=== PATIENT | female | born 1970 | race Caucasian/White ===

== ENCOUNTER 2017-04-09 03:39 | Inpatient (IN) | payer MEDICAID ==
[~2017-04-09] VITALS: Ht 160 cm; Wt 124.3 kg
[2017-04-09 03:52] VITALS: BP 147/100
--- NOTE | 2017-04-09 04:05 | NUR ---
AMBULATD TO ER BED 8
--- NOTE | 2017-04-09 04:10 | NUR ---
46Y F BIB FAMILY C/O RLQ PAIN RADIATING TO THE RIGHT FLANK. PT DENIES ANY VOMITING OR DIARRHEA JUST NAUSEA. PT DENIES ANY ALLERGIES AND MEDICAL HX. PT AAOX4. PT AMBULATED TO ER BED WITH STEADY GAIT. ER MD MADE AWARE.
[2017-04-09] MEDS ORDERED: MORPHINE SULFATE 4 MG/ML SYR IVP ONE ×2 (04:20→06:30)
[2017-04-09] MEDS ORDERED: NACL 0.9% 1,000 ML IV ONE (04:20)
[2017-04-09 04:35] LABS: HEMATOCRIT 41.4 % (36-48); HEMOGLOBIN 13.6 g/dL (12.0-16.0); MEAN CORPUSCULAR HEMOGLOBIN 29 pg (27-31); MEAN CORPUSCULAR HGB CONC 33 g/dL (33-37); MEAN CORPUSCULAR VOLUME 88 fL (80-94); PLATELET COUNT (AUTO) 191 K/uL (140-450); RED BLOOD CELL COUNT(AUTO) 4.69 MIL/uL (4.20-5.40); RED CELL DISTRIBUTION WIDTH 12.1 % (11.6-13.7); WHITE BLOOD COUNT (AUTO) 9.3 K/uL (4.8-10.8)
[2017-04-09 04:35] LABS: APPEARANCE,URINE CLEAR (CLEAR); BILIRUBIN,URINE NEGATIVE (NEGATIVE); BLOOD, URINE TRACE-L (NEGATIVE); COLOR,URINE YELLOW (YELLOW); LEUKOCYTE ESTERASE ,URINE NEGATIVE (NEGATIVE); NITRITE, URINE NEGATIVE (NEGATIVE); UGLUCOSE NEGATIVE (NEGATIVE)
[2017-04-09 04:51] LABS: ALBUMIN 3.6 g/dL (3.4-5.0); ANION GAP 12.9 (8-16); CREATININE 0.8 mg/dL (0.6-1.3); POTASSIUM 3.9 mmol/L (3.5-5.1); TOTAL BILIRUBIN 0.4 mg/dL (0.0-1.0)
--- NOTE | 2017-04-09 04:56 | NUR ---
ULTRASOUND AT BEDSIDE
[2017-04-09 04:57] LABS: EOSINOPHILS % (MANUAL) 6 % (0-4); LYMPHOCYTES % (MANUAL) 29 % (20-46); MONOCYTES % (MANUAL) 4 % (5-12)
[2017-04-09 04:57] LABS: RBC,URINE 0-5 (RARE) /HPF (0-5); WBC,URINE 0-5 (RARE) /HPF (0-5)
--- NOTE | 2017-04-09 07:06 | NUR ---
RECEIVED REPORT FROM QUEENIE CRAWFORD.Patient appears to be resting comfortably in bed. Vital Signs within normal limits. Respirations even and unlabored.WILL CONTINUE TO MONITOR.
--- NOTE | 2017-04-09 07:06 | NUR ---
Note andrzej in EDM - 04/09/17 at 0717 by MEDDEBBYV RECEIVED REPORT FROM QUEENIE CRAWFORD.Patient appears to be resting comfortably in bed. Vital Signs within normal limits. Respirations even and unlabored.WILL CONTINUE TO MONITOR.
[2017-04-09] MEDS ORDERED: DOCUSATE SODIUM 100 MG GELCAP PO PRN (07:25)
[2017-04-09] MEDS ORDERED: METOCLOPRAMIDE 10 MG/2 ML INJ VIAL IVP ONE (07:25)
[2017-04-09] MEDS ORDERED: ACETAMINOPHEN 325 MG TAB PO PRN (07:25)
[2017-04-09] MEDS ORDERED: MORPHINE SULFATE 2 MG/ML SYR IVP PRN (07:25)
--- NOTE | 2017-04-09 07:36 | NUR ---
X RAY AT BEDSIDE.
[2017-04-09 07:48] LABS: PROTHROMBIN TIME 9.8 secs (10.8-13.4)
--- NOTE | 2017-04-09 07:48 | NUR ---
Patient being evaluated by DR CHAN at bedside.
[2017-04-09] MEDS ORDERED: HYDROmorphone 1 MG/ML AMP IVP ONE (07:50)
[2017-04-09] MEDS ORDERED: HYDROmorphone 1 MG/ML AMP ONE (07:55)
[2017-04-09 08:06] LABS: CHOL/HDL RATIO 6.4 (1-4.5); FREE T4 (FREE THYROXINE) 1.01 ng/dL (0.76-1.46); PHOSPHORUS 2.7 mg/dL (2.5-4.9); THYROID STIMULATING HORMONE 2.52 uIU/mL (0.34-3.74)
--- NOTE | 2017-04-09 08:28 | NUR ---
GAVE REPORT TO QUEENIE ACEVEDO.
--- NOTE | 2017-04-09 08:29 | NUR ---
Patient will be admitted to care of DR BARRON. Admited toTADAIR. Will go to room 111A. Belongings list completed. Report to QUEENIE ACEVEDO.
[2017-04-09 08:30] LABS: BARBITURATE, URINE NEG. ng/ml (NEG <=200); BENZODIAZEPINE, URINE NEG. ng/mL (NEG <=200); CANNABINOID, URINE NEG. ng/mL (NEG <=50); COCAINE, URINE NEG. ng/mL (NEG <=300); OPIATE, URINE NEG. ng/mL (NEG <=2000); PHENCYCLIDINE SCREEN,URINE NEG. ng/mL (NEG <=25)
[2017-04-09 08:40] VITALS: BP 115/50
--- NOTE | 2017-04-09 08:40 | NUR ---
RECEIVED PATIENT REPORT AT BEDSIDE FROM NIGHT NURSE. PATIENT IS AAOX4 AND SHOWS NO S/S OF ACUTE DISTRESS ON ROOM AIR. PATIENT STATES RUQ ABD PAIN 12/30 WILL ADMINISTER NORCO 7.5/325MG PO. IV NOTED ON THE R AC WITH IVF'S INFUSING WELL. SA ON TELE MONITOR. SKIN IS INTACT. PATIENT IS AWARE OF POC FOR TODAY AND VERBALIZED UNDERSTANDING. THE BED IS LOWERED WITH CALL LIGHT WITHIN REACH. WILL CONTINUE TO MONITOR. Addendum: 04/09/17 at 1139 by Haydee Case RN RECEIVED PATIENT FROM ER NURSE. NOT NIGHT NURSE.
--- NOTE | 2017-04-09 09:55 | NUR ---
ADMINISTERED PRN PAIN MEDICATION NORCO 7.5/325MG PO FOR RUQ ABD PAIN 6/10. WILL REASSESS IN ONE HR.
[2017-04-09] MEDS: HYDROcodone/APAP 7.5/325 MG 1 TAB PO PRN (09:56)
[2017-04-09] MEDS: NACL 0.9% 1,000 ML IV SCH ×3 (09:57→20:42)
--- NOTE | 2017-04-09 10:55 | NUR ---
PATIENT STATES RUQ PAIN IS 8/10. WILL ADMINISTER PRN SEVER PAIN MEDICATION.
[2017-04-09] MEDS: KETOROLAC 30 MG/ML VIAL IM PRN ×3 (11:30→22:38)
--- NOTE | 2017-04-09 11:30 | NUR ---
PATIENT C/O 8/10 RUQ ABD PAIN. WILL ADMINISTER PRN PAIN MEDICATION TORADOL 30 MG IVP. WILL REASSESS IN 30 MIN.
[2017-04-09 12:00] VITALS: BP 130/68
--- NOTE | 2017-04-09 12:00 | NUR ---
PATIENT STATED TOLERABLE PAIN LEVEL OF 5/10 RUQ ABD. WILL CONTINUE TO MONITOR.
[2017-04-09] MEDS: PIPER/TAZO 3.375GM/D5W PREMIX 50 ML IV SCH ×2 (12:32→20:31)
--- NOTE | 2017-04-09 12:35 | NUR ---
ADMINISTERED SCHEDULED MEDICATION. IV ABX ARE INFUSING WELL.
--- NOTE | 2017-04-09 13:09 | NUR ---
PATIENT IS AAOX4 AND SHOWS NO S/S OF ACUTE DISTRESS ON RA. WILL CONTINUE TO MONITOR.
--- NOTE | 2017-04-09 15:22 | NUR ---
PATIENT STATES PAIN LEVEL OF 4/10 AT RUQ ABD. PATIENT STATES PAIN IS TOLERABLE. ALL NEEDS MET AT THIS TIME. PATIENT IS IN BED RESTING AND SHOWS NO S/S OF ACUTE DISTRESS ON ROOM AIR. BED IS IN LOW POSITION WITH CALL LIGHT WITHIN REACH.
[2017-04-09 15:42] VITALS: BP 114/67
--- NOTE | 2017-04-09 17:56 | NUR ---
PATIENT C/O RUQ ABD PAIN 8/10 ADMINISTERED TORADOL 30 MG IVP. WILL REASSESS IN 30 MIN.
--- NOTE | 2017-04-09 19:25 | NUR ---
GAVE PATIENT REPORT AT BEDSIDE TO NIGHT NURSE. PATIENT ENDORSED IN STABLE CONDITION.
--- NOTE | 2017-04-09 19:26 | NUR ---
PT IS AWAKE AND ALERT. BOWEL SOUNDS PRESENT ON ALL FOUR QUADRANTS. NO SIGNS OF ACUTE DISTRESS, ON ROOM AIR. IV ACCESS PATENT AND ASYMPTOMATIC. PLAN OF CARE DISCUSSED, PT VERBALIZED UNDERSTANDING. FAMILY AT THE BEDSIDE. BED ON LOW POSITION, BILATERAL HALF SIDE RAILS UP, CALL LIGHT WITHIN REACH, WILL CONTINUE TO MONITOR.
[2017-04-09 20:00] VITALS: BP 109/63
[2017-04-09] MEDS: ONDANSETRON 4 MG/2 ML VIAL IM/IVP PRN (20:31)
--- NOTE | 2017-04-09 21:30 | NUR ---
PT SITTING UP IN BED, FAMILY MEMBER AT THE BEDSIDE. NO SIGNS OF ACUTE DISTRESS, BILATERAL HALF SIDE RAILS UP, BED ON LOW POSITION, CALL LIGHT WITHIN REACH. WILL CONTINUE TO MONITOR.
--- NOTE | 2017-04-10 00:10 | NUR ---
PT IS SLEEPING. NO SIGNS OF ACUTE DISTRESS, BILATERAL HALF SIDE RAILS UP, BED ON LOW POSITION, CALL LIGHT WITHIN REACH. WILL CONTINUE TO MONITOR.
--- NOTE | 2017-04-10 02:40 | NUR ---
ASSISTED PT TO THE BATHROOM, TOLERATED WELL. BACK IN BED. BILATERAL HALF SIDE RAILS UP, BED ON LOW POSITION, CALL LIGHT WITHIN REACH. WILL CONTINUE TO MONITOR.
[2017-04-10] MEDS: ONDANSETRON 4 MG/2 ML VIAL IM/IVP PRN (02:50)
[2017-04-10] MEDS: KETOROLAC 30 MG/ML VIAL IM PRN (02:50)
[2017-04-10] MEDS: NACL 0.9% 1,000 ML IV SCH ×4 (03:22→23:36)
[2017-04-10] MEDS: PIPER/TAZO 3.375GM/D5W PREMIX 50 ML IV SCH ×3 (06:01→21:32)
--- NOTE | 2017-04-10 06:08 | NUR ---
ASSISTED PT TO THE BATHROOM, TOLERATED WELL. PT BACK IN BED. NO SIGNS OF ACUTE DISTRESS, BED ON LOW POSITION, BILATERAL HALF SIDE RAILS UP, CALL LIGHT WITHIN REACH, WILL CONTINUE TO MONITOR.
[2017-04-10 06:42] LABS: BASOPHILS # (AUTO) 0.2 K/uL (0.00-0.22); EOSINOPHILS # (AUTO) 0.1 K/uL (0-0.4); EOSINOPHILS % (AUTO) 0.7 % (0.0-4.0); HEMOGLOBIN 13.3 g/dL (12.0-16.0); LYMPHOCYTES % (AUTO) 8.4 % (20.5-51.1); MEAN CORPUSCULAR HEMOGLOBIN 30 pg (27-31); MEAN CORPUSCULAR HGB CONC 34 g/dL (33-37); MEAN CORPUSCULAR VOLUME 88 fL (80-94); MONOCYTES # (AUTO) 1.5 K/uL (0.8-1.0); MONOCYTES % (AUTO) 12.4 % (1.7-9.3); NEUTROPHILS % (AUTO) 76.5 % (42.2-75.2); PLATELET COUNT (AUTO) 180 K/uL (140-450); RED BLOOD CELL COUNT(AUTO) 4.45 MIL/uL (4.20-5.40); RED CELL DISTRIBUTION WIDTH 12.4 % (11.6-13.7); WHITE BLOOD COUNT (AUTO) 11.8 K/uL (4.8-10.8)
[2017-04-10 06:55] LABS: ANION GAP 13.8 (8-16); CARBON DIOXIDE 23.5 mmol/L (21-32); CREATININE 0.6 mg/dL (0.6-1.3); POTASSIUM 3.3 mmol/L (3.5-5.1)
--- NOTE | 2017-04-10 07:22 | NUR ---
ENDORSED PT TO NIGHT NURSE. PT IN STABLE CONDITION.
--- NOTE | 2017-04-10 07:25 | NUR ---
RECEIVED REPORT FROM NIGHT NURSE, PT IS AAOX4 FRENCH SPEAKING, ON ROOM AIR, IV TO RIGHT AC 20G INFUSING WELL, SKIN INTACT, INITIAL ASSESSMENT COMPLETED, REVIEW PLAN OF CARE WITH PT, PT VERBALIZED UNDERSTANDING, ALL SAFETY PRECAUTIONS MET, CALL LIGHT WITHIN REACH, WILL CONTINUE TO MONITOR.
[2017-04-10 08:00] VITALS: BP 107/53
--- NOTE | 2017-04-10 08:15 | NUR ---
PATIENT HAS BEEN SCREENED AND CATEGORIZED HIGH NUTRITION RISK. PATIENT WILL BE SEEN WITHIN 1-2 DAYS OF ADMISSION. 04/09/17-04/10/[address]
[2017-04-10 08:23] LABS: T4 (THYROXINE) 6.4 ug/dL (4.5-12.0)
[2017-04-10] MEDS: LACTOBACILLUS RHAMNOSUS GG 1 EACH CAP PO SCH (09:09)
[2017-04-10] MEDS: KETOROLAC 30 MG/ML VIAL IVP PRN ×3 (09:09→23:02)
--- NOTE | 2017-04-10 09:12 | NUR ---
DUE MEDICATIONS GIVEN, PT TOLERATED WELL. PT C/O ABD PAIN MEDICATED PER MD ORDERS. WILL CONTINUE TO MONITOR.
[2017-04-10] MEDS ORDERED: POTASSIUM CHLORIDE 40 MEQ, LIDOCAINE 1% 25 MG in NACL 0.9% 250 ML IV SCH (11:00)
--- NOTE | 2017-04-10 11:37 | NUR ---
PT CURRENTLY RESTING IN BED, NO S/S OF DISTRESS NOTED. ALL NEEDS MET. WILL CONTINUE TO MONITOR.
[2017-04-10 12:00] VITALS: BP 126/64
--- NOTE | 2017-04-10 12:46 | NUR ---
04/10/17 RD INITIAL ASSESSMENT COMPLETED PLEASE REFER TO NUTRITION ASSESSMENT UNDER CARE ACTIVITY FOR ESTIMATED NUTRITIONAL NEEDS. 1.CONTINUE NPO DIET 2. WHEN MEDICALLY FEASIBLE, INITIATE CLEAR LIQUID DIET AND ADVANCE TO REGULAR DIET 3. RD TO FOLLOW UP WITHIN 2-3 DAYS; HIGH RISK NESS MCDANIEL, WINTER
[2017-04-10] MEDS: HYDROcodone/APAP 7.5/325 MG 1 TAB PO PRN ×2 (13:40→18:48)
--- NOTE | 2017-04-10 14:25 | NUR ---
PT RESTING IN BED, ALL SAFETY PRECAUTIONS MET. CALL LIGHT WITHIN REACH. WILL CONTINUE TO MONITOR
[2017-04-10 16:00] VITALS: BP 123/67
--- NOTE | 2017-04-10 16:10 | NUR ---
CHECKED IN ON PT, PT AWAKE. ALL NEEDS MET. CALL LIGHT WITHIN REACH.
--- NOTE | 2017-04-10 18:45 | NUR ---
PT C/O OF ABD PAIN, MEDICATED PER MD ORDERS. CALL LIGHT WITHIN REACH. WILL CONTINUE TO MONITOR,
--- NOTE | 2017-04-10 19:12 | NUR ---
ENDORSED PLAN OF CARE TO NIGHT NURSE, PT IN STABLE CONDITION, PT VISITING WITH FAMILY
--- NOTE | 2017-04-10 19:30 | NUR ---
RECEIVED REPORT FROM AM NURSE. PT RESTING IN BED, AOX4, AMBULATORY, ABLE TO VERBALIZE NEEDS. PT C/O ABD PAIN, PT WAS JUST MEDICATED, PAIN TOLERABLE, WILL MONITOR PAIN. PT DENIES CHEST PAIN, SOB OR S/S OF ACUTE DISTRESS. PT DENIES N/V/D. JUNIOR PHP DEVELOPER IN PLACE. IV ACCESS ASYMPTOMATIC, PATENT AND INTACT. IVF INFUSING WELL. DISCUSSED AND REVIEWED PLAN OF CARE WITH PT. PT VERBALIZED UNDERSTANDING. ALL NEEDS MET. SAFETY MEASURES ENSURED. CALL LIGHT WITHIN REACH. WILL CONTINUE TO MONITOR.
[2017-04-10 20:00] VITALS: BP 121/72
--- NOTE | 2017-04-10 21:35 | NUR ---
ADMINISTERED DUE MED WITH EDUCATION. PT VERBALIZED UNDERSTANDING, IVPB INFUSING WELL. ALL NEEDS MET. SAFETY MEASURES ENSURED. CALL LIGHT WITHIN REACH. WILL CONTINUE TO MONITOR.
--- NOTE | 2017-04-10 23:42 | NUR ---
WAS NOTIFIED BY FISH AND WILDLIFE TECHNICIAN THAT PT IS HAVING FREQ PVC's. CHECKED ON PT. PT IS SLEEPING, AROUSABLE. PT DENIES CHEST PAIN, SOB OR S/S OF ACUTE DISTRESS. VS STABLE. BP 127/70, HR 91, SPO2 94% AT ROOM AIR, RR 18 UNLABORED. PT DENIES ABD PAIN AT THIS TIME. WILL CONTINUE TO MONITOR.
[2017-04-11] VITALS: BP 127/70
[2017-04-11] MEDS: ONDANSETRON 4 MG/2 ML VIAL IM/IVP PRN ×2 (00:19→17:50)
--- NOTE | 2017-04-11 00:20 | NUR ---
PT C/O NAUSEA, ADMINISTERED ZOFRAN PRN ORDERED. PT DENIES ABD PAIN AT THIS TIME. IVF INFUSING WELL, ALL NEEDS MET. SAFETY MEASURES ENSURED. CALL LIGHT WITHIN REACH. WILL CONTINUE TO MONITOR.
--- NOTE | 2017-04-11 02:01 | NUR ---
PT SLEEPING COMFORTABLY. NO S/S OF ACUTE DISTRESS. IVF INFUSING WELL. ALL NEEDS MET. SAFETY MEASURES ENSURED. CALL LIGHT WITHIN REACH. WILL CONTINUE TO MONITOR.
[2017-04-11 04:00] VITALS: BP 132/70
[2017-04-11] MEDS: HYDROcodone/APAP 7.5/325 MG 1 TAB PO PRN ×3 (04:12→23:23)
[2017-04-11] MEDS: PIPER/TAZO 3.375GM/D5W PREMIX 50 ML IV SCH ×3 (04:13→20:51)
--- NOTE | 2017-04-11 04:16 | NUR ---
PT C/O ABD PAIN. SEE PAIN ASSESSMENT. ADMINISTERED NORCO PO PRN ORDERED WITH EDUCATION. PT VERBALIZED UNDERSTANDING, TOLERATED MED WELL. IVPB INFUSING WELL. SCDs ENSURED. ALL NEEDS MET. SAFETY MEASURES ENSURED. CALL LIGHT WITHIN REACH. WILL CONTINUE TO MONITOR.
[2017-04-11] MEDS: NACL 0.9% 1,000 ML IV SCH ×4 (06:02→19:22)
[2017-04-11 06:51] LABS: BASOPHILS # (AUTO) 0.1 K/uL (0.00-0.22); BASOPHILS % (AUTO) 1.3 % (0.0-2.0); EOSINOPHILS # (AUTO) 0.4 K/uL (0-0.4); EOSINOPHILS % (AUTO) 4.4 % (0.0-4.0); HEMATOCRIT 36.4 % (36-48); HEMOGLOBIN 12.3 g/dL (12.0-16.0); LYMPHOCYTES # (AUTO) 1.6 K/uL (2.5-16.5); MEAN CORPUSCULAR HEMOGLOBIN 30 pg (27-31); MEAN CORPUSCULAR HGB CONC 34 g/dL (33-37); MEAN CORPUSCULAR VOLUME 88 fL (80-94); MONOCYTES # (AUTO) 1.1 K/uL (0.8-1.0); MONOCYTES % (AUTO) 12.4 % (1.7-9.3); NEUTROPHILS % (AUTO) 64.9 % (42.2-75.2); PLATELET COUNT (AUTO) 155 K/uL (140-450); RED BLOOD CELL COUNT(AUTO) 4.13 MIL/uL (4.20-5.40); RED CELL DISTRIBUTION WIDTH 12.1 % (11.6-13.7); WHITE BLOOD COUNT (AUTO) 9.2 K/uL (4.8-10.8)
--- NOTE | 2017-04-11 07:20 | NUR ---
ENDORSED PLAN OF CARE TO AM NURSE. CONDITION STABLE.
[2017-04-11 07:21] LABS: ANION GAP 12.2 (8-16); CARBON DIOXIDE 24.3 mmol/L (21-32); CREATININE 0.6 mg/dL (0.6-1.3); POTASSIUM 3.5 mmol/L (3.5-5.1)
--- NOTE | 2017-04-11 07:22 | NUR ---
RECEIVED PATIENT REPORT AT BEDSIDE FROM NIGHT NURSE. PATIENT IS AAOX4 AND SHOWS NO S/S OF ACUTE DISTRESS ON ROOM AIR. PATIENT STATES RUQ ABD PAIN 5/10 RUQ ABD PAIN AND STATES IT IS TOLERABLE. IV NOTED ON THE R AC WITH IVF'S INFUSING WELL. SA ON TELE MONITOR. SKIN IS INTACT. PATIENT IS AWARE OF POC FOR TODAY AND VERBALIZED UNDERSTANDING. THE BED IS LOWERED WITH CALL LIGHT WITHIN REACH. WILL CONTINUE TO MONITOR.
[2017-04-11 08:00] VITALS: BP 114/65
[2017-04-11] MEDS: LACTOBACILLUS RHAMNOSUS GG 1 EACH CAP PO SCH (08:49)
--- NOTE | 2017-04-11 08:50 | NUR ---
ADMINISTERED SCHEDULED MEDICATIONS. PATIENT TOLERATED ACTIVITY WELL. PATIENT STARTED TO C/O RUQ ABD PAIN 01/29 WILL ADMINISTER PRN PAIN MEDICATION.
--- NOTE | 2017-04-11 09:40 | NUR ---
ADMINISTERED TORADOL 30 MG IVP. WILL REASSESS IN 30 MIN.
--- NOTE | 2017-04-11 10:10 | NUR ---
PATIENT C/O 6/10 ABD PAIN. PATIENT HAS NM SCAN AT 1400 AND PER NM NURSE PATIENT CANNOT RECEIVE ANYMORE PAIN MEDICATION AFTER TORADOL 30 MG IVP. PATIENT IS AWARE. PATIENT IS NPO. THE BED IS LOWERED WITH CALL LIGHT WITHIN REACH.
--- NOTE | 2017-04-11 11:25 | NUR ---
PATIENT SHOWS NO S/S OF ACUTE DISTRESS ON ROOM AIR.
[2017-04-11 12:00] VITALS: BP 119/66
[2017-04-11 12:46] LABS: BILIRUBIN,DIRECT 0.4 mg/dL (0.0-0.3)
--- NOTE | 2017-04-11 12:55 | NUR ---
PATIENT SHOWS NO S/S OF ACUTE DISTRESS ON ROOM AIR. THE BED IS LOWERED WITH CALL LIGHT WITHIN REACH.
--- NOTE | 2017-04-11 13:20 | NUR ---
ADMINISTERED SCHEDULED MEDICATION. PATIENT IV ABX IS INFUSING WELL.
--- NOTE | 2017-04-11 13:45 | NUR ---
PATIENT LEFT OFF UNIT IN STABLE CONDITION FOR A PROCEDURE.
[2017-04-11] MEDS ORDERED: MORPHINE SULFATE 2 MG/ML SYR IVP PRN (14:05)
--- NOTE | 2017-04-11 14:05 | NUR ---
SPOKE WITH DR LEVINE REGARDING MORPHINE ORDER FOR PATIENT TO HAVE DURING EXAM PER JASMINE MADISON DICKERSON.
--- NOTE | 2017-04-11 15:05 | NUR ---
PATIENT C/O 10/10 RUQ ABD PAIN. MORPHINE 2 MG IVP WAS SCHEDULED TO GIVE FOR HIDA SCAN PROCEDURE. ADMINISTERED MORPHINE. WILL REASSESS IN 30 MIN.
--- NOTE | 2017-04-11 15:35 | NUR ---
PATIENT STATES SHARP RUQ ABD PAIN 6/10. PATIENT WAS MEDICATED. WILL REASSESS BP IN A HR AND ADMINISTER PRN PAIN MEDICAITON TORADOL 30 MG IVP.
[2017-04-11 16:00] VITALS: BP 136/70
--- NOTE | 2017-04-11 16:35 | NUR ---
PATIENT CONTINUES TO HAVE RUQ ABD PAIN 6/10 WILL ADMINISTER TORADOL 30 MG IVP. WILL REASSESS IN 30 MIN.
[2017-04-11] MEDS: KETOROLAC 30 MG/ML VIAL IVP PRN (16:37)
--- NOTE | 2017-04-11 18:50 | NUR ---
PATIENT IS SLEEPING AND SHOWS NO S/S OF ACUTE DISTRESS. PT IS AWAKEN AND STATED PAIN LEVEL OF 5/10 TOLERABLE PAIN.
--- NOTE | 2017-04-11 19:17 | NUR ---
GAVE PATIENT REPORT AT BEDSIDE TO NIGHT NURSE. PATIENT ENDORSED IN STABLE CONDITION.
--- NOTE | 2017-04-11 19:30 | NUR ---
RECEIVED REPORT FROM AM NURSE. PT RESTING IN BED, AOX4, AMBULATORY, ABLE TO VERBALIZE NEEDS. PT C/O ABD PAIN, PT STATES PAIN TOLERABLE, WILL MONITOR PAIN, INSTRUCTED PT TO USE CALL LIGHT TO ASK FOR PAIN MED. PT DENIES CHEST PAIN, SOB OR S/S OF ACUTE DISTRESS. PT DENIES N/V/D. SUPPORT DIRECTOR IN PLACE. IV ACCESS ASYMPTOMATIC, PATENT AND INTACT. IVF INFUSING WELL. DISCUSSED AND REVIEWED PLAN OF CARE WITH PT. PT VERBALIZED UNDERSTANDING. ALL NEEDS MET. SAFETY MEASURES ENSURED. CALL LIGHT WITHIN REACH. WILL CONTINUE TO MONITOR.
[2017-04-11 20:00] VITALS: BP 113/63
--- NOTE | 2017-04-11 20:53 | NUR ---
ADMINISTERED DUE MED WITH EDUCATION. PT VERBALIZED UNDERSTANDING. IVPB INFUSING WELL. ALL NEEDS MET. SAFETY MEASURES ENSURED. CALL LIGHT WITHIN REACH. WILL CONTINUE TO MONITOR.
--- NOTE | 2017-04-11 23:30 | NUR ---
PT C/O ABD PAIN. SEE PAIN ASSESSMENT. ADMINISTERED NORCO PO PRN ORDERED WITH EDUCATION. IVF INFUSING WELL. ALL NEEDS MET. SAFETY MEASURES ENSURED. CALL LIGHT WITHIN REACH. WILL CONTINUE TO MONITOR.
[2017-04-12] VITALS: BP 127/82
[2017-04-12] MEDS: NACL 0.9% 1,000 ML IV SCH ×4 (02:02→22:19)
[2017-04-12] MEDS: KETOROLAC 30 MG/ML VIAL IVP PRN ×2 (02:51→09:25)
--- NOTE | 2017-04-12 02:51 | NUR ---
PT C/O BREAKTHROUGH ABD PAIN. SEE PAIN ASSESSMENT. ADMINISTERED TORADOL IV PRN WITH EDUCATION. IVF INFUSING WELL. ALL NEEDS MET. SAFETY MEASURES ENSURED. CALL LIGHT WITHIN REACH. WILL CONTINUE TO MONITOR.
[2017-04-12 04:00] VITALS: BP 138/78
[2017-04-12] MEDS: PIPER/TAZO 3.375GM/D5W PREMIX 50 ML IV SCH ×3 (04:53→20:39)
[2017-04-12] MEDS: HYDROcodone/APAP 7.5/325 MG 1 TAB PO PRN ×2 (04:55→12:11)
--- NOTE | 2017-04-12 04:55 | NUR ---
PT C/O ABD PAIN. SEE PAIN ASSESSMENT. ADMINISTERED NORCO PRN ORDERED. ADMINISTERED DUE MED WITH EDUCATION. IVPB INFUSING WELL. ALL NEEDS MET. SAFETY MEASURES ENSURED. CALL LIGHT WITHIN REACH. WILL CONTINUE TO MONITOR.
[2017-04-12 06:48] LABS: BASOPHILS # (AUTO) 0.3 K/uL (0.00-0.22); BASOPHILS % (AUTO) 2.8 % (0.0-2.0); EOSINOPHILS # (AUTO) 0.5 K/uL (0-0.4); EOSINOPHILS % (AUTO) 5.6 % (0.0-4.0); HEMOGLOBIN 12.5 g/dL (12.0-16.0); LYMPHOCYTES % (AUTO) 21.3 % (20.5-51.1); MEAN CORPUSCULAR HEMOGLOBIN 30 pg (27-31); MEAN CORPUSCULAR HGB CONC 34 g/dL (33-37); MEAN CORPUSCULAR VOLUME 88 fL (80-94); MONOCYTES # (AUTO) 0.9 K/uL (0.8-1.0); MONOCYTES % (AUTO) 9.7 % (1.7-9.3); NEUTROPHILS # (AUTO) 5.8 K/uL (1.8-7.7); NEUTROPHILS % (AUTO) 60.6 % (42.2-75.2); PLATELET COUNT (AUTO) 162 K/uL (140-450); RED BLOOD CELL COUNT(AUTO) 4.19 MIL/uL (4.20-5.40); RED CELL DISTRIBUTION WIDTH 12.2 % (11.6-13.7); WHITE BLOOD COUNT (AUTO) 9.4 K/uL (4.8-10.8)
[2017-04-12 07:07] LABS: PROTHROMBIN TIME 10.6 secs (10.8-13.4)
--- NOTE | 2017-04-12 07:15 | NUR ---
ENDORSED PLAN OF CARE TO AM NURSE. CONDITION STABLE.
[2017-04-12 07:25] LABS: CARBON DIOXIDE 24.6 mmol/L (21-32); CREATININE 0.6 mg/dL (0.6-1.3); POTASSIUM 3.6 mmol/L (3.5-5.1)
[2017-04-12 07:27] LABS: PHOSPHORUS 2.5 mg/dL (2.5-4.9)
[2017-04-12 08:00] VITALS: BP 126/66
--- NOTE | 2017-04-12 08:00 | NUR ---
RECEIVED REPORT FROM JOSEPH JEROME FOR CONTINUITY OF CARE PATIENT AWAKE A/O X4 NO S/S OF RESP DISTRESS NOTED NO COMPLAIN OF PAIN , NO N/V AT THIS TIME. IV SITE RT AC GAUGE 20 INTACT AND PATENT , IVF INFUSING WELL. PATIENT IS AWARE OF GOING TO SURGERY, KEPT PATIENT NPO , PLAN OF CARE DISCUSSED WITH THE PATIENT VITALS STABLE WILL CONTINUE TO MONITOR.
[2017-04-12] MEDS: LACTOBACILLUS RHAMNOSUS GG 1 EACH CAP PO SCH (09:21)
--- NOTE | 2017-04-12 09:25 | NUR ---
C/O PAIN MEDICATED WITH TORODOL IVP . DUE MEDS GIVEN TOLERATED WELL
--- NOTE | 2017-04-12 10:35 | NUR ---
04/12/17 RD FOLLOW-UP ASSESSMENT COMPLETED PLEASE REFER TO NUTRITION ASSESSMENT UNDER CARE ACTIVITY FOR ESTIMATED NUTRITIONAL NEEDS. 1. WHEN MEDICALLY FEASIBLE, INITIATE PO DIET - TO START ON CLEAR LIQUID DIET AND ADVANCE TOLERATED 60G CONSISTENT CARBOHYDRATE DIET 2. RD TO FOLLOW-UP 2-3 DAYS, HIGH RISK NESS MCDANIEL, WINTER
--- NOTE | 2017-04-12 12:15 | NUR ---
CRYING C/O PAIN MEDICATED WITH NORCO ONE TAB AT THIS TIME
[2017-04-12 12:17] VITALS: BP 119/61
[2017-04-12] MEDS ORDERED: HYDROmorphone 1 MG/ML AMP IVP SCH (13:00)
--- NOTE | 2017-04-12 13:20 | NUR ---
PAIN RELIVED , RELAXED AT THIS TIME.
[2017-04-12] MEDS: ONDANSETRON 4 MG/2 ML VIAL IM/IVP PRN (13:48)
[2017-04-12 16:00] VITALS: BP 117/54
[2017-04-12] MEDS ORDERED: HYDROmorphone 1 MG/ML AMP IVP PRN (18:00)
--- NOTE | 2017-04-12 18:02 | NUR ---
SAFETY MAINTAINED CALL LIGHT IN REACH , TOLERABLE PAIN STABLE CONDITION.
--- NOTE | 2017-04-12 19:30 | NUR ---
RECEIVED REPORT FROM AM NURSE. PT RESTING IN BED, AOX4, AMBULATORY, ABLE TO VERBALIZE NEEDS. PT C/O ABD PAIN, SEE PAIN ASSESSMENT, WILL MEDICATE ORDERED. PT DENIES CHEST PAIN, SOB OR S/S OF ACUTE DISTRESS. PT DENIES N/V AT THIS TIME. SCDs IN PLACE. IV ACCESS ASYMPTOMATIC, PATENT AND INTACT. IVF INFUSING WELL. DISCUSSED AND REVIEWED PLAN OF CARE WITH PT. PT VERBALIZED UNDERSTANDING. ALL NEEDS MET. SAFETY MEASURES ENSURED. CALL LIGHT WITHIN REACH. WILL CONTINUE TO MONITOR.
[2017-04-12 20:00] VITALS: BP 137/72
[2017-04-12] MEDS: HYDROmorphone 1 MG/ML AMP IVP PRN (20:39)
--- NOTE | 2017-04-12 20:40 | NUR ---
PT C/O ABD PAIN. SEE PAIN ASSESSMENT. ADMINISTERED PAIN MED ORDERED WITH EDUCATION. ADMINISTERED DUE MED WITH EDUCATION. PT VERBALIZED UNDERSTANDING, TOLERATED MED WELL. ALL NEEDS MET. IVPB INFUSING WELL. SAFETY MEASURES ENSURED. CALL LIGHT WITHIN REACH. WILL CONTINUE TO MONITOR.
--- NOTE | 2017-04-12 23:45 | NUR ---
PT RESTING COMFORTABLY. PT C/O ABD PAIN, PAIN TOLERABLE, DENIES PAIN MEDS AT THIS TIME. ALL NEEDS MET. IVF INFUSING WELL. SAFETY MEASURES ENSURED. CALL LIGHT WITHIN REACH. WILL CONTINUE TO MONITOR.
[2017-04-13] VITALS: BP 118/57
[2017-04-13] MEDS: ONDANSETRON 4 MG/2 ML VIAL IM/IVP PRN ×2 (01:58→10:57)
--- NOTE | 2017-04-13 02:00 | NUR ---
PT C/O ABD PAIN. SEE PAIN ASSESSMENT. ADMINISTERED PAIN MEDICATION ORDERED. PT C/O NAUSEA. ADMINISTERED ZOFRAN IVP PRN ORDERED. PT EDUCATED, PT VERBALIZED UNDERSTANDING, TOLERATED MEDS WELL. ALL NEEDS MET. UVF INFUSING WELL. SAFETY MEASURES ENSURED. CALL LIGHT WITHIN REACH. WILL CONTINUE TO MONITOR.
[2017-04-13] MEDS: NACL 0.9% 1,000 ML IV SCH ×3 (04:15→18:02)
[2017-04-13] MEDS: PIPER/TAZO 3.375GM/D5W PREMIX 50 ML IV SCH ×3 (04:15→23:15)
--- NOTE | 2017-04-13 04:15 | NUR ---
PT SLEEPING COMFORTABLY, AROUSABLE TO NAME. NO S/S OF ACUTE DISTRESS. ADMINISTERED DUE MED WITH EDUCATION. IVPB INFUSING WELL. ALL NEEDS MET. SAFETY MEASURES ENSURED. CALL LIGHT WITHIN REACH. WILL CONTINUE TO MONITOR.
--- NOTE | 2017-04-13 07:00 | NUR ---
CALLED AND PAGED DR STEVEN, NO ANSWER. WILL ENDORSE TO AM NURSE. CALLED DR MICHAUD, DISCUSSED PT DX, ASKED WHETHER MD IS ABLE TO DO SURGERY FOR TODAY. STATED THAT PT IS DR STEVEN'S PT. MADE AWARE THAT DR STEVEN HAS CALLED BACK YET. ASKED WHETHER MD CAN DO SURGERY TODAY IF DR STEVEN CANNOT DO SURGERY, STATED "NO, I AM BUSY." WILL ENDORSE TO AM NURSE. CHARGE NURSE AWARE.
--- NOTE | 2017-04-13 07:15 | NUR ---
ENDORSED PLAN OF CARE TO AM NURSE. CONDITION STABLE.
--- NOTE | 2017-04-13 07:16 | NUR ---
RECEIVED REPORT FROM PM NURSE FOR CONTINUITY OF CARE. PT RESTING IN BED. INITIAL ASSESSMENT DONE. RESP EVEN AND UNLABORED. NO S/S OF DISTRESS, RESTLESSNESS, OR SOB. PT DENIES PAIN, OR DISCOMFORT AT THIS TIME. SKIN IS WARM AND DRY. IV IS LEAKING. IV DC'ED. CATH TIP INTACT. NO BLEEDING NOTED. WILL REINSERT NEW IV. PLAN OF CARE DISCUSSED WITH PT, VERBALIZED UNDERSTANDING. SAFETY MEASURES IN PLACED, SIDE RAILS UP, BED LOCKED ON LOW POSITION, CALL LIGHT WITHIN REACH. WILL CONTINUE TO MONITOR.
[2017-04-13 08:00] VITALS: BP 142/75
--- NOTE | 2017-04-13 08:00 | NUR ---
NEW IV INSERTED ON LEFT FA, 22G. IV INFUSING, NO SWELLING OR REDNESS NOTED.
--- NOTE | 2017-04-13 09:05 | NUR ---
PT IN BED, FAMILY AT BEDSIDE. RESP EVEN AND UNLABORED. NO S/S OF DISTRESS, RESTLESSNESS, OR SOB. PT DENIES NEEDS AT THIS TIME. SAFEY MEASURES IN PLACED. WILL CONTINUE TO MONITOR.
[2017-04-13] MEDS: LACTOBACILLUS RHAMNOSUS GG 1 EACH CAP PO SCH (09:46)
[2017-04-13 10:56] LABS: BASOPHILS # (AUTO) 0.2 K/uL (0.00-0.22); BASOPHILS % (AUTO) 1.9 % (0.0-2.0); EOSINOPHILS # (AUTO) 0.4 K/uL (0-0.4); EOSINOPHILS % (AUTO) 5.2 % (0.0-4.0); HEMATOCRIT 37.3 % (36-48); HEMOGLOBIN 12.6 g/dL (12.0-16.0); LYMPHOCYTES # (AUTO) 1.8 K/uL (2.5-16.5); LYMPHOCYTES % (AUTO) 22.3 % (20.5-51.1); MEAN CORPUSCULAR HEMOGLOBIN 30 pg (27-31); MEAN CORPUSCULAR HGB CONC 34 g/dL (33-37); MEAN CORPUSCULAR VOLUME 88 fL (80-94); MONOCYTES # (AUTO) 0.6 K/uL (0.8-1.0); MONOCYTES % (AUTO) 7.6 % (1.7-9.3); NEUTROPHILS # (AUTO) 5.2 K/uL (1.8-7.7); PLATELET COUNT (AUTO) 205 K/uL (140-450); RED BLOOD CELL COUNT(AUTO) 4.23 MIL/uL (4.20-5.40); RED CELL DISTRIBUTION WIDTH 12.2 % (11.6-13.7); WHITE BLOOD COUNT (AUTO) 8.2 K/uL (4.8-10.8)
[2017-04-13] MEDS: HYDROmorphone 1 MG/ML AMP IVP PRN ×3 (10:58→23:15)
--- NOTE | 2017-04-13 11:30 | NUR ---
PT RESTING IN BED QUIETLY. RESP EVEN AND UNLABORED. NO S/S OF DISTRESS. SAFETY MEASURES IN PLACED. WILL CONTINUE TO MONITOR.
[2017-04-13 11:36] LABS: ANION GAP 16.4 (8-16); CARBON DIOXIDE 22.9 mmol/L (21-32); CREATININE 0.5 mg/dL (0.6-1.3); POTASSIUM 3.3 mmol/L (3.5-5.1)
[2017-04-13 11:41] LABS: BILIRUBIN,DIRECT 0.2 mg/dL (0.0-0.3); TOTAL BILIRUBIN 0.6 mg/dL (0.0-1.0)
--- NOTE | 2017-04-13 14:00 | NUR ---
PT SLEEPING, EASILY AWAKENS. RESP EVEN AND UNLABORED. NO S/S OF DISTRESS. SAFETY MEASURES IN PLACED. WILL CONTINUE TO MONITOR
[2017-04-13 16:00] VITALS: BP 106/60
--- NOTE | 2017-04-13 16:18 | NUR ---
PT C/O PAIN 7/10 ON ABDOMINAL AREA, WILL MEDICATE PER MD ORDER.
--- NOTE | 2017-04-13 18:50 | NUR ---
FAMILY MEMBER AT BEDSIDE. PT DENIES ANY FURTHER NEEDS AT THIS TIME. WILL CONTINUE TO MONITOR.
--- NOTE | 2017-04-13 19:30 | NUR ---
ENDORSED CARE TO PM NURSE FOR CONTINUITY OF CARE. PT IS IN STABLE CONDITION.
--- NOTE | 2017-04-13 19:31 | NUR ---
RECEIVED REPORT FROM AM NURSE. PT IS AWAKE AND ALERT, WITH DAUGHTER AT THE BEDSIDE. NO SIGNS OF ACUTE DISTRESS. ON ROOM AIR, IV ACCESS ASYMPTOMATIC AND PATENT. BOWEL AND BLADDER CONTINENCE, PT IS AMBULATORY. PLAN OF CARE DISCUSSED, PT VERBALIZED UNDERSTANDING. BED ON LOW POSITION, BILATERAL HALF SIDE RAILS UP, CALL LIGHT WITHIN REACH, WILL CONTINUE TO MONITOR.
[2017-04-13 20:00] VITALS: BP 131/71
--- NOTE | 2017-04-13 20:00 | NUR ---
DR. PHILIPPE WAS MADE AWARE OF PT LOW POTASSIUM 3.3L.
[2017-04-13] MEDS ORDERED: POTASSIUM CHLORIDE 10 MEQ TABER PO SCH (20:10)
[2017-04-14] VITALS: BP 127/73
[2017-04-14] MEDS ORDERED: POTASSIUM CHLORIDE 10 MEQ TABER PO ONE (02:05)
--- NOTE | 2017-04-14 02:20 | NUR ---
PER DR. PHILIPPE ORDER. POTASSIUM K DUR 20 MEQ GIVEN PO, ONCE. PT TOLERATED WELL. SHOWING NO SIGNS OF ACUTE DISTRESS. BED IN LOW POSITION, CALL LIGHT WITHIN REACH, WILL CONTINUE TO MONITOR.
--- NOTE | 2017-04-14 02:40 | NUR ---
PT IS SLEEPING. SHOWING NO SIGNS OF ACUTE DISTRESS, BED ON LOW POSITION, CALL LIGHT WITHIN REACH, WILL CONTINUE TO MONITOR.
[2017-04-14 04:00] VITALS: BP 130/76
[2017-04-14] MEDS: NACL 0.9% 1,000 ML IV SCH ×2 (04:31→07:22)
[2017-04-14] MEDS: PIPER/TAZO 3.375GM/D5W PREMIX 50 ML IV SCH ×3 (05:38→20:30)
--- NOTE | 2017-04-14 07:20 | NUR ---
REPORT GIVEN TO AM NURSE. PT IN STABLE CONDITION.
--- NOTE | 2017-04-14 07:25 | NUR ---
RECEIVED REPORT FROM THE OIL HEAT TECHNICIAN NURSE AT BEDSIDE FOR CONTINUITY OF CARE. PT HAS BEEN HERE SINCE SUNDAY. DX: CHOLELITHIASIS. WAITING ON SURGERY CONSULT. PT IS AAOX4. SITTING ON SIDE OF BED. PT IS HUNGRY AND WOULD LIKE TO EAT. DENIES ABD PAIN AT THIS TIME. HAD BM EARLY THIS MORNING. SKIN IS INTACT. IV ON L FA22G NS AT 150 ML INFUSING. WE WILL AWAIT ON DR. HAHN TEAM TO ROUND AND ASSESS PT FOR PLAN FOR TODAY. WILL CONTINUE TO MONITOR PT.
[2017-04-14 08:00] VITALS: BP 133/73
[2017-04-14] MEDS: LACTOBACILLUS RHAMNOSUS GG 1 EACH CAP PO SCH (08:41)
--- NOTE | 2017-04-14 08:42 | NUR ---
ADMINISTERED MORNING MEDS. PT TOLERATED WELL. OFFERED HER SOME ICE CHIPS. WILL CONTINUE TO MONITOR PT.
--- NOTE | 2017-04-14 09:41 | NUR ---
PER MD, PT WILL POSSIBLY BE TRANSFERRED TO [facility], IF DR. CALLAWAY DOESN'T DO SURGERY HERE ON SUNDAY. SO REQUESTED SOFT DIET FOR PT. LATE BREAKFAST TRAY GIVEN. EDUCATED PT TO EAT SLOW, LITTLE AT A TIME. MAY CAUSE ABD PAIN, LET ME KNOW.
--- NOTE | 2017-04-14 11:00 | NUR ---
DR. MICHAUD CALLED. PUT HER BACK ON NPO. MAY SCHEDULE SURGERY. WILL CALL US BACK AND LET US KNOW.
--- NOTE | 2017-04-14 11:03 | NUR ---
04/14/17 RD FOLLOW UP COMPLETED REFER TO NUTRITION PROGRESS NOTE UNDER CARE ACTIVITY FOR ESTIMATED NEEDS. RD RECOMMENDATIONS: 1. CONTINUE SOFT DIET TOLERATED. 2. RD TO FOLLOW-UP 2-3 DAYS, HIGH RISK SANDY CAZARES RD
[2017-04-14] MEDS: DEXT 5% /NACL 0.9% 1,000 ML IV SCH ×2 (13:21→20:33)
--- NOTE | 2017-04-14 13:25 | NUR ---
ADMINISTERED ZOSYN AND NEW FLUIDS: D5 NS AT 150ML/HR. PT TOLERATED WELL. WILL CONTINUE TO MONITOR PT.
--- NOTE | 2017-04-14 14:09 | NUR ---
PT'S IV INFILTRATED. REMOVED IT AND STARTED ANOTHER. IV ON L HAND 22G. PT TOLERATED WELL. SISTER AND KIDS ARE HERE FOR A SHORT VISIT. WILL CONTINUE TO MONITOR.
[2017-04-14 16:00] VITALS: BP 136/74
--- NOTE | 2017-04-14 16:03 | NUR ---
DR. MICHAUD DECIDED NOT TO DO SURGERY TODAY. NO CASES ON SUNDAY. WILL RESUME SOFT DIET FOR DINNER. NPO AFTER MIDNIGHT, JUST IN CASE WE CAN DO SURGERY ON SUNDAY. IF NO CASES, SHE CAN RESUME DIET. NPO AFTER MIDNIGHT AND SURGERY ON SUNDAY PER DR LEVINE. PT NOTIFIED. PT AWARE AND VERBALIZED UNDERSTANDING.
--- NOTE | 2017-04-14 18:35 | NUR ---
PT ATE DINNER. RESTING COMFORTABLY NOW. PT WILL BE NPO AFTER MIDNIGHT. POSSIBLE SURGERY TOMORROW IF NOT RESUME DIET. THEN, NPO AFTER MIDNIGHT. POSSIBLE SURGERY ON SUNDAY. WILL CONTINUE TO MONITOR PT.
--- NOTE | 2017-04-14 19:10 | NUR ---
ENDORSED PT TO THE MORGUE TECHNICIAN NURSE AT BEDSIDE FOR CONTINUITY OF CARE. PT IS IN STABLE CONDITION.
--- NOTE | 2017-04-14 19:15 | NUR ---
RECEIVED PT AWAKE AMBULATING AROUND THE ROOM WITH STEADY GAIT, DENIES ANY PAIN, IVF INFUSING WELL, INSTRUCTED NPO AFTER MIDNIGHT FOR POSSIBLE SURGERY TOMORROW, VERBALIZED UNDERSTANDING, SAFETY MEASURES IN PLACE, CALL LIGHT WITHIN REACH.
--- NOTE | 2017-04-14 21:00 | NUR ---
DUE IV ANTIBIOTIC ADMINISTERED, ALL NEEDS ATTENDED, FAMILY MEMBERS AT BEDSIDE.
--- NOTE | 2017-04-14 23:44 | NUR ---
PT SLEEPING, EASILY AROUSABLE, VITAL SIGNS STABLE, DENIES ANY PAIN, NPO AFTER MIDNIGHT FOR POSSIBLE SURGERY IN AM, IVF INFUSING WELL, CONTINUE TO MONITOR CLOSELY.
[2017-04-15] VITALS: BP 107/79
[2017-04-15] MEDS: HYDROmorphone 1 MG/ML AMP IVP PRN (04:18)
[2017-04-15] MEDS: DEXT 5% /NACL 0.9% 1,000 ML IV SCH ×4 (04:20→23:20)
--- NOTE | 2017-04-15 04:20 | NUR ---
PT COMPLAINING OF ABDOMINAL PAIN 01/29, MEDICATED PRN, MAINTAINED ON NPO, IVF INFUSING WELL, MONITORED CLOSELY.
[2017-04-15] MEDS: PIPER/TAZO 3.375GM/D5W PREMIX 50 ML IV SCH ×3 (04:22→22:16)
--- NOTE | 2017-04-15 07:15 | NUR ---
PT AWAKE, NO DISTRESS NOTED, REPORT GIVEN TO QUEENIE DILLON FOR CONTINUITY OF CARE.
--- NOTE | 2017-04-15 07:20 | NUR ---
RECEIVED REPORT FROM QUEENIE SORIA. PT IS AWAKE RESTING IN BED, A/OX4, AMBULATORY, IV IS ON THE LT HAND, PATENT, INTACT, FLUSHING WELL, PATIENT IS ON ROOM AIR, NO S/S OF RESPIRATORY DISTRESS OR DISCOMFORT NOTED, DISCUSSED PLAN OF CARE WITH PT, PT VERBALIZED UNDERSTANDING, SAFETY/FALL PRECAUTIONS ARE IN PLACE, CALL LIGHT IS WITHIN REACH, WILL CONTINUE TO MONITOR.
[2017-04-15 08:00] VITALS: BP 124/73
[2017-04-15 08:44] LABS: BASOPHILS # (AUTO) 0.3 K/uL (0.00-0.22); BASOPHILS % (AUTO) 3.9 % (0.0-2.0); EOSINOPHILS # (AUTO) 0.5 K/uL (0-0.4); EOSINOPHILS % (AUTO) 7.5 % (0.0-4.0); HEMATOCRIT 38.4 % (36-48); HEMOGLOBIN 12.8 g/dL (12.0-16.0); LYMPHOCYTES # (AUTO) 1.6 K/uL (2.5-16.5); MEAN CORPUSCULAR HEMOGLOBIN 29 pg (27-31); MEAN CORPUSCULAR HGB CONC 33 g/dL (33-37); MEAN CORPUSCULAR VOLUME 87 fL (80-94); MONOCYTES # (AUTO) 0.8 K/uL (0.8-1.0); MONOCYTES % (AUTO) 10.5 % (1.7-9.3); NEUTROPHILS % (AUTO) 56.1 % (42.2-75.2); PLATELET COUNT (AUTO) 213 K/uL (140-450); RED CELL DISTRIBUTION WIDTH 12.5 % (11.6-13.7); WHITE BLOOD COUNT (AUTO) 7.2 K/uL (4.8-10.8)
[2017-04-15] MEDS: LACTOBACILLUS RHAMNOSUS GG 1 EACH CAP PO SCH (09:00)
--- NOTE | 2017-04-15 09:00 | NUR ---
DUE MEDICATION GIVEN, PT RESTING IN BED, CALL LIGHT WITHIN REACH.
[2017-04-15 09:01] LABS: ANION GAP 11.3 (8-16); CARBON DIOXIDE 26.9 mmol/L (21-32); CREATININE 0.7 mg/dL (0.6-1.3); POTASSIUM 3.2 mmol/L (3.5-5.1); PROTHROMBIN TIME 10.2 secs (10.8-13.4)
[2017-04-15 11:25] LABS: BILIRUBIN,DIRECT 0.2 mg/dL (0.0-0.3); TOTAL BILIRUBIN 0.4 mg/dL (0.0-1.0)
--- NOTE | 2017-04-15 13:06 | NUR ---
DUE IVPB GIVEN, PT TOLERATING WELL NO REACTION, CALL LIGHT WITHIN REACH.
--- NOTE | 2017-04-15 14:30 | NUR ---
PATIENT AMBULATING AROUND THE NURSES STATION ACCOMPANIED BY FAMILY MEMBER.
[2017-04-15] MEDS ORDERED: HYDROcodone/APAP 7.5/325 MG 1 TAB PO PRN (15:05)
[2017-04-15] MEDS ORDERED: KETOROLAC 30 MG/ML VIAL IM PRN (15:05)
[2017-04-15] MEDS ORDERED: POTASSIUM CHLORIDE 40 MEQ, LIDOCAINE 1% 25 MG in NACL 0.9% 250 ML IV ONE (15:35)
--- NOTE | 2017-04-15 15:45 | NUR ---
CALLED PHARMACY TO ASK ABOUT THE POTASSIUM DR. LEVINE HAD ORDERED FOR PT.
[2017-04-15 16:00] VITALS: BP 120/60
--- NOTE | 2017-04-15 16:45 | NUR ---
Nayeli COLLIER AT THIS TIME, PT TOLERATING WELL, WILL CONTINUE TO MONITOR.
--- NOTE | 2017-04-15 17:20 | NUR ---
PATIENT COMPLAINED OF PAIN AT THE IV SITE. IV SITE CHECKED, IV IS PATENT AND INTACT, FLUSHING WELL.
--- NOTE | 2017-04-15 19:36 | NUR ---
RECEIVED PT AWAKE ON BED, DENIES ANY PAIN, K-RIDER INFUSING AT THIS TIME, INSTRUCTED NPO AFTER MIDNIGHT FOR POSSIBLE SX IN AM, PLAN OF CARE DISCUSS, CALL LIGHT WITHIN REACH, FAMILY MEMBERS AT BEDSIDE.
--- NOTE | 2017-04-15 19:36 | NUR ---
ENDORSED PT TO FARMWORKER MACHINE NURSE FOR CONTINUITY OF CARE, PT STABLE AT THIS TIME.
--- NOTE | 2017-04-15 20:30 | NUR ---
DR LEVINE CALLED AND SAID THAT DR STEVEN WILL DO THE SURGERY TOMORROW AND TO OBTAIN CONSENT FOR LAP CHOLECYSTECTOMY POSSIBLE OPEN, PT MADE AWARE, CONSENT SIGNED, ALL NEEDS ATTENDED.
[2017-04-15 22:14] LABS: PROTHROMBIN TIME 10.3 secs (10.8-13.4)
[2017-04-16] VITALS: BP 99/58
--- NOTE | 2017-04-16 | NUR ---
PT SLEEPING, EASILY AROUSABLE, VITAL SIGNS STABLE, DENIES ANY PAIN, NPO FOR SURGERY IN AM, AMBULATED TO BR WITH STEADY GAIT AND VOIDED FREELY, URINE SENT TO LAB FOR TEST, IVF INFUSING WELL, CONTINUE TO MONITOR CLOSELY.
[2017-04-16] MEDS: PIPER/TAZO 3.375GM/D5W PREMIX 50 ML IV SCH ×3 (04:28→22:18)
--- NOTE | 2017-04-16 04:30 | NUR ---
PT SLEEPING, EASILY AROUSABLE, DENIES ANY PAIN, DUE IVPB ZOSYN ADMINISTERED, CHG BATH DONE WITH ASSIST FROM KAM ZUNIGA, MONITORED CLOSELY.
--- NOTE | 2017-04-16 05:50 | NUR ---
AM LABS DRAWN, AM CARE DONE, DENIES ANY PAIN, MAINTAIN ON NPO, IVF INFUSING WELL, MONITORED CLOSELY.
[2017-04-16 06:09] LABS: BASOPHILS # (AUTO) 0.1 K/uL (0.00-0.22); BASOPHILS % (AUTO) 1.7 % (0.0-2.0); EOSINOPHILS # (AUTO) 0.6 K/uL (0-0.4); EOSINOPHILS % (AUTO) 7.7 % (0.0-4.0); HEMATOCRIT 39.1 % (36-48); HEMOGLOBIN 13.2 g/dL (12.0-16.0); LYMPHOCYTES # (AUTO) 2.1 K/uL (2.5-16.5); MEAN CORPUSCULAR HEMOGLOBIN 30 pg (27-31); MEAN CORPUSCULAR HGB CONC 34 g/dL (33-37); MEAN CORPUSCULAR VOLUME 88 fL (80-94); MONOCYTES # (AUTO) 0.8 K/uL (0.8-1.0); MONOCYTES % (AUTO) 10.6 % (1.7-9.3); NEUTROPHILS # (AUTO) 3.7 K/uL (1.8-7.7); PLATELET COUNT (AUTO) 202 K/uL (140-450); RED BLOOD CELL COUNT(AUTO) 4.43 MIL/uL (4.20-5.40); RED CELL DISTRIBUTION WIDTH 12.5 % (11.6-13.7); WHITE BLOOD COUNT (AUTO) 7.3 K/uL (4.8-10.8)
[2017-04-16] MEDS: DEXT 5% /NACL 0.9% 1,000 ML IV SCH ×3 (06:22→19:01)
[2017-04-16 06:26] LABS: ANION GAP 12.8 (8-16); CARBON DIOXIDE 26.6 mmol/L (21-32); CREATININE 0.7 mg/dL (0.6-1.3); POTASSIUM 3.4 mmol/L (3.5-5.1)
--- NOTE | 2017-04-16 07:05 | NUR ---
DR STEVEN CAME IN AND EXPLAINED THE SURGICAL PROCEDURE TO BE DONE THIS MORNING TO THE PT, PT VERBALIZED UNDERSTANDING.
--- NOTE | 2017-04-16 07:15 | NUR ---
PT AWAKE, NO SIGNS OF DISTRESS, REPORT GIVEN TO QUEENIE BUSBY FOR CONTINUITY OF CARE.
--- NOTE | 2017-04-16 07:16 | NUR ---
RECEIVED HANDOFF REPORT FROM PM RN. PATIENT A&OX4. IC SITE PATENT AND INTACT. PATIENT DENIES PAIN. PATIENT AWAKE AND ALERT IN BED WITH FAMILY AT BEDSIDE. NO SIGNS OR SYMPTOMS OF ACUTE DISTRESS NOTED. CALL LIGHT WITHIN REACH. WILL CONTINUE TO MONITOR.
--- NOTE | 2017-04-16 07:41 | NUR ---
PT TAKEN OFF UNIT TO OR.
[2017-04-16 08:00] VITALS: BP 132/70
[2017-04-16] MEDS ORDERED: BUPIVACAINE-MPF 0.5% 30 ML VIAL INJ ONE (08:04)
[2017-04-16] MEDS ORDERED: GLYCOPYRROLATE 0.2 MG/ML VIAL IV ONE (08:06)
[2017-04-16] MEDS ORDERED: ROCURONIUM 50 MG/5 ML VIAL IV ONE (08:06)
[2017-04-16] MEDS ORDERED: DESFLURANE 240 ML BTL INH ONE (08:06)
[2017-04-16] MEDS ORDERED: DEXAMETHASONE 4 MG/ML VIAL IVP ONE (08:06)
[2017-04-16] MEDS ORDERED: ONDANSETRON 4 MG/2 ML VIAL IVP ONE (08:06)
[2017-04-16] MEDS ORDERED: NEOSTIGMINE 1:1000 10 MG/10 ML VIAL IM ONE (08:06)
[2017-04-16] MEDS ORDERED: PROPOFOL 200 MG/20 ML VIAL IV ONE (08:06)
[2017-04-16] MEDS ORDERED: fentaNYL 0.05 MG/ML VIAL ONE (08:11)
[2017-04-16] MEDS ORDERED: HYDROmorphone PFS 2 MG/ML SYR ONE (08:12)
[2017-04-16] MEDS ORDERED: HYDROmorphone 1 MG/ML AMP IVP PRN (08:30)
[2017-04-16] MEDS ORDERED: ONDANSETRON 4 MG/2 ML VIAL IVP PRN (08:30)
[2017-04-16] MEDS: LACTOBACILLUS RHAMNOSUS GG 1 EACH CAP PO SCH (09:00)
[2017-04-16] MEDS: HYDROmorphone PFS 2 MG/ML SYR ONE ×2 (12:37→12:51)
[2017-04-16] MEDS ORDERED: ZOLPIDEM 5 MG TAB PO PRN (13:10)
--- NOTE | 2017-04-16 13:18 | NUR ---
PATIENT BACK FROM OR. REPORT RECEIVED AT BEDSIDE. IV SITE PATENT AND INTACT. PATIENT SLEEPING. DRESSING NOTED DRY AND INTACT. NO SIGNS OR SYMPTOMS OF ACUTE DISTRESS NOTED. CALL LIGHT WITHIN REACH. WILL CONTINUE TO MONITOR.
[2017-04-16] MEDS: HYDROmorphone 1 MG/ML AMP IVP PRN ×3 (14:56→22:17)
[2017-04-16 16:00] VITALS: BP 122/67
--- NOTE | 2017-04-16 16:36 | NUR ---
PATIENT AWAKE IN BED. FAMILY AT BEDSIDE. PATIENT DENIES PAIN. ON SIGNS OR SYMPTOMS OF ACUTE DISTRESS NOTED. CALL LIGHT WITHIN REACH. WILL CONTINUE TO MONITOR.
[2017-04-16] MEDS ORDERED: BENZOCAINE/MENTHOL 1 LOZ MM PRN (17:15)
--- NOTE | 2017-04-16 19:27 | NUR ---
ENDORSED PLAN OF CARE TO PM RN. PATIENT IN STABLE CONDITION. NO SIGNS OR SYMPTOMS OF ACUTE DISTRESS NOTED. CALL LIGHT WITHIN REACH.
--- NOTE | 2017-04-16 19:28 | NUR ---
RECEIVED REPORT FROM AM NURSE. PT IS AWAKE, ALERT AND ORIENTED X4. FAMILY AT THE BEDSIDE. NO SIGNS OF ACUTE DISTRESS. IV ACCESS IS ASYMPTOMATIC AND PATENT. BEDBOUND. RADHA DRAIN IN PLACE, TWO SURGICAL WOUNDS IN ABDOMEN, DRESSINGS IN PLACE DRY AND INTACT. PLAN OF CARE DISCUSSED, PT VERBALIZED UNDERSTANDING. BED ON LOW POSITION, BILATERAL HALF SIDE RAILS UP, CALL LIGHT WITHIN REACH, WILL CONTINUE TO MONITOR.
--- NOTE | 2017-04-16 23:30 | NUR ---
PT COMPLAINING OF CHEST PAIN 03/01, NON-RADIATING, DR. DANIEL MADE AWARE OF PT SYMPTOMS. FREDY HER ORDERED EKG STAT, AND KUB. PT TRANSFERRED TO TELE MONITOR. WILL MEDICATE ORDERED. WILL CONTINUE TO MONITOR PT.
--- NOTE | 2017-04-16 23:40 | NUR ---
PER DR. DANIEL, PT TRANSFERRED TO TELE.
[2017-04-17] VITALS: BP 136/72
[2017-04-17] MEDS: SIMETHICONE 80 MG TAB.CHEW PO SCH ×2 (01:40→08:29)
[2017-04-17] MEDS: KETOROLAC 30 MG/ML VIAL IVP PRN ×2 (01:40→12:02)
[2017-04-17] MEDS: DEXT 5% /NACL 0.9% 1,000 ML IV SCH ×3 (02:30→19:20)
--- NOTE | 2017-04-17 02:37 | NUR ---
PT IS SLEEPING. SHOWING NO SIGNS OF ACUTE DISTRESS. BED ON LOW POSITION, BILATERAL HALF SIDE RAILS UP, CALL LIGHT WITHIN REACH. WILL CONTINUE TO MONITOR.
--- NOTE | 2017-04-17 03:43 | NUR ---
ASSISTED PT WITH BEDPAN, PT TOLERATED WELL, WILL CONTINUE TO MONITOR.
[2017-04-17 04:00] VITALS: BP 120/68
[2017-04-17] MEDS: PIPER/TAZO 3.375GM/D5W PREMIX 50 ML IV SCH (04:45)
[2017-04-17] MEDS: HYDROmorphone 1 MG/ML AMP IVP PRN ×6 (04:47→23:57)
[2017-04-17] MEDS: PANTOPRAZOLE 40 MG INJ VIAL IVP SCH (06:04)
--- NOTE | 2017-04-17 07:30 | NUR ---
ENDORSED PT TO AM NURSE. PT IS STABLE
--- NOTE | 2017-04-17 07:31 | NUR ---
RECEIVED REPORT FROM CAR BODY INSPECTOR NURSE AT BEDSIDE FOR CONTINUITY OF CARE. PT IS AWAKE AND ORIENTED. INTRODUCED SELF AND UPDATED BOARD. WILL CONTINUE WITH PLAN OF CARE AND MONITOR PT.
[2017-04-17 07:39] LABS: BASOPHILS # (AUTO) 0.1 K/uL (0.00-0.22); BASOPHILS % (AUTO) 0.9 % (0.0-2.0); EOSINOPHILS % (AUTO) 0.2 % (0.0-4.0); HEMATOCRIT 35.6 % (36-48); HEMOGLOBIN 11.9 g/dL (12.0-16.0); LYMPHOCYTES % (AUTO) 9.7 % (20.5-51.1); MEAN CORPUSCULAR HEMOGLOBIN 29 pg (27-31); MEAN CORPUSCULAR HGB CONC 33 g/dL (33-37); MEAN CORPUSCULAR VOLUME 88 fL (80-94); MONOCYTES # (AUTO) 0.9 K/uL (0.8-1.0); MONOCYTES % (AUTO) 9.1 % (1.7-9.3); NEUTROPHILS % (AUTO) 80.1 % (42.2-75.2); PLATELET COUNT (AUTO) 198 K/uL (140-450); RED BLOOD CELL COUNT(AUTO) 4.03 MIL/uL (4.20-5.40); RED CELL DISTRIBUTION WIDTH 12.6 % (11.6-13.7)
[2017-04-17 07:48] LABS: ANION GAP 13.2 (8-16); CARBON DIOXIDE 25.1 mmol/L (21-32); CREATININE 0.7 mg/dL (0.6-1.3); POTASSIUM 3.3 mmol/L (3.5-5.1)
[2017-04-17 08:11] LABS: ALBUMIN 2.7 g/dL (3.4-5.0); BILIRUBIN,DIRECT 0.5 mg/dL (0.0-0.3)
[2017-04-17] MEDS: LACTOBACILLUS RHAMNOSUS GG 1 EACH CAP PO SCH (08:29)
--- NOTE | 2017-04-17 09:30 | NUR ---
PT WAS SEEN BY DR. KENYON. SAW SURGICAL WOUNDS AND RADHA DRAINAGE SITE. PT'S ABDOMINAL DRESSING WAS CHANGED AND DRAIN WAS EMPTIED. 40ML OUTPUT FROM RADHA DRAIN OF ABDOMEN NOTED. PT WAS CHANGED INTO CLEAN GOWN AND BED SHEETS. APPLIED ABDOMINAL BINDER. PT OK TO AMBULATE DOWN THE CRUZ TO RELIEVE ABDOMINAL PAIN.
[2017-04-17] MEDS ORDERED: POTASSIUM CHLORIDE 40 MEQ, LIDOCAINE 1% 25 MG in NACL 0.9% 250 ML IV SCH (11:00)
--- NOTE | 2017-04-17 11:42 | NUR ---
04/17/17 RD FOLLOW-UP ASSESSMENT COMPLETED PLEASE REFER TO NUTRITION ASSESSMENT UNDER CARE ACTIVITY FOR ESTIMATED NUTRITIONAL NEEDS. 1. CONTINUE REGULAR DIET 2. RD TO FOLLOW-UP 2-3 DAYS, HIGH RISK NESS MCDANIEL RD
--- NOTE | 2017-04-17 14:30 | NUR ---
PT'S ABDOMINAL DRESSING WAS CHANGED. MODERATE AMOUNT OF DRAINAGE NOTED ON DRESSING. PT AMBULATED DOWN THE CRUZ INDEPENDENTLY ACCOMPANIED BY FAMILY MEMBER. PT WALKED WITH STEADY GAIT, NO DIZZINESS OR WEAKNESS NOTED.
[2017-04-17 16:00] VITALS: BP 107/70
--- NOTE | 2017-04-17 16:31 | NUR ---
PT COMPLAINED OF ABDOMINAL PAIN 04/01. ADMINISTERED DILAUDID FOR PAIN. PT TOLERATED WELL. REPOSITIONED PT IN BED AND CHANGED ABDOMINAL DRESSING.
--- NOTE | 2017-04-17 19:30 | NUR ---
ENDORSED PT TO COIN MACHINE OPERATOR NURSE FOR CONTINUITY OF CARE. PT IN STABLE CONDITION. FAMILY MEMBERS AT BEDSIDE.
--- NOTE | 2017-04-17 19:31 | NUR ---
RECD. RESTING IN BED, AWAKE, A/OX4. RESPIRATION EVEN AND UNLABORED. IV OF D5NS AT 80 ML/HR INFUSING, LEFT AC G20. INCISION IN THE ABDOMEN COVERED WITH DRESSING AND ABDOMINAL PAD, WITH 1 RADHA DRAINING SEROSANGUINEOUS FLUID. NOTED BROWNISH YELLOW FLUID SEEPING AROUND RADHA DRESSING,MINIMAL AMOUNT, WILL CONTINUE TO MONITOR. ON BILATERAL LEG SEQUENTIALS. PAIN IN THE ABDOMEN 1/10, STATED TOLERABLE. WILL CALL NURSE WHEN PAIN INCREASES. PLAN OF CARE FOR THE SHIFT DISCUSSED. VERBALIZED UNDERSTANDING.
[2017-04-17 20:00] VITALS: BP 115/61
--- NOTE | 2017-04-17 21:30 | NUR ---
ENCOURAGED TO DRINK MORE FLUIDS AND TURN ALTERNATELY TO SIDES. ABLE TO USE THE INCENTIVE SPIROMETER FAIRLY WELL. AWARE OF ITS IMPORTANCE.
--- NOTE | 2017-04-17 22:00 | NUR ---
CLEANSED AND CHANGED DRESSING OF ABDOMINAL INCISION BY QUEENIE YEBOAH. MADE COMFORTABLE IN BED WITH PILLOWS.
--- NOTE | 2017-04-18 | NUR ---
CHANGED DRESSING, MODERATE AMOUNT OF YELLOWISH DRAINAGE COMING OUT OF RADHA SITE, INCISION IN THE ABDOMEN WITH KIKO ALL DRY AND INTACT, NO DRAINAGE NOTED, EMPTY RADHA OF SEROSANGUINEOUS FLUID 60 ML AMOUNT. MADE COMFORTABLE IN BED, WITH PILLOWS.
[2017-04-18] MEDS: DEXT 5% /NACL 0.9% 1,000 ML IV SCH ×3 (01:44→16:13)
--- NOTE | 2017-04-18 02:00 | NUR ---
ASSISTED BY RN TO USE BEDPAN. ABLE TO VOID SMALL AMOUNT OF PINKISH RED URINE. CLEANSED AND MADE COMFORTABLE IN BED.
[2017-04-18 02:54] VITALS: BP 116/60
[2017-04-18] MEDS: HYDROmorphone 1 MG/ML AMP IVP PRN ×5 (03:16→21:23)
--- NOTE | 2017-04-18 04:30 | NUR ---
ASSISTED OUT OF BE TO AMBULATE TO THE BR TO VOID, BACK TO BED AFTER VOIDING, TOLERATED WELL.
--- NOTE | 2017-04-18 05:56 | NUR ---
Patient's Plan of Care was discussed and reviewed with DIGITAL PROGRAM MANAGER: MAKENZIE RODAS
[2017-04-18 06:04] VITALS: BP 113/70
[2017-04-18 06:41] LABS: BASOPHILS # (AUTO) 0.1 K/uL (0.00-0.22); BASOPHILS % (AUTO) 1.1 % (0.0-2.0); EOSINOPHILS # (AUTO) 0.1 K/uL (0-0.4); HEMATOCRIT 33.1 % (36-48); HEMOGLOBIN 11.2 g/dL (12.0-16.0); LYMPHOCYTES # (AUTO) 1.5 K/uL (2.5-16.5); LYMPHOCYTES % (AUTO) 13.6 % (20.5-51.1); MEAN CORPUSCULAR HEMOGLOBIN 30 pg (27-31); MEAN CORPUSCULAR HGB CONC 34 g/dL (33-37); MEAN CORPUSCULAR VOLUME 88 fL (80-94); MONOCYTES # (AUTO) 0.9 K/uL (0.8-1.0); NEUTROPHILS # (AUTO) 8.2 K/uL (1.8-7.7); NEUTROPHILS % (AUTO) 76.3 % (42.2-75.2); PLATELET COUNT (AUTO) 206 K/uL (140-450); RED BLOOD CELL COUNT(AUTO) 3.74 MIL/uL (4.20-5.40); RED CELL DISTRIBUTION WIDTH 12.7 % (11.6-13.7); WHITE BLOOD COUNT (AUTO) 10.8 K/uL (4.8-10.8)
--- NOTE | 2017-04-18 07:15 | NUR ---
RECEIVED REPORT FROM WREATH AND GARLAND MAKER NURSE AT BEDSIDE FOR CONTINUITY OF CARE. PT IN STABLE CONDITION.
[2017-04-18 07:40] LABS: CARBON DIOXIDE 25.4 mmol/L (21-32); CREATININE 0.6 mg/dL (0.6-1.3); POTASSIUM 3.4 mmol/L (3.5-5.1)
[2017-04-18 07:46] LABS: ALBUMIN 2.5 g/dL (3.4-5.0); BILIRUBIN,DIRECT 0.8 mg/dL (0.0-0.3); TOTAL BILIRUBIN 1.5 mg/dL (0.0-1.0)
[2017-04-18] MEDS: KETOROLAC 30 MG/ML VIAL IVP PRN ×2 (07:51→16:18)
[2017-04-18] MEDS: LACTOBACILLUS RHAMNOSUS GG 1 EACH CAP PO SCH (10:09)
[2017-04-18] MEDS: PANTOPRAZOLE 40 MG INJ VIAL IVP SCH (10:09)
--- NOTE | 2017-04-18 10:48 | NUR ---
PT COMPLAINED OF PAIN IN ABDOMINAL AREA 01/29. ADMINISTERED DILAUDID FOR PAIN. PT TOLERATED WELL. EMPTIED RADHA DRAIN. 100ML OF DRAINAGE EMPTIED. CHANGED PT'S DRESSING ON ABDOMEN. APPLIED ABDOMINAL BINDER. PT GOT UP OUT OF BED AND AMBULATED DOWN THE CRUZ. PT TOLERATED ACTIVITY WELL. WILL CONTINUE TO MONITOR.
--- NOTE | 2017-04-18 14:00 | NUR ---
EMPTIED RADHA DRAIN. 100ML OF DRAINAGE NOTED. CHANGED ABDOMINAL DRESSING AND APPLIED ABDOMINAL BINDER. PT COMPLAINED OF PAIN. ADMINISTERED TORADOL FOR PAIN. PT TOLERATED WELL. PT GOT UP TO USE BATHROOM. REPOSITIONED PT IN BED. PT IS SITTING UP IN BED. WILL CONTINUE TO MONITOR.
[2017-04-18 16:00] VITALS: BP 123/68
--- NOTE | 2017-04-18 18:19 | NUR ---
PT IS SITTING UP IN BED EATING DINNER. STATED HER PAIN WAS 8/10. ADMINISTERED DILAUDID FOR PAIN. PT TOLERATED WELL. REPOSITIONED PT IN BED. PT'S DRESSING IS DRY AND INTACT. NO OTHER COMPLAINTS AT THIS TIME WILL CONTINUE TO MONITOR.
--- NOTE | 2017-04-18 19:25 | NUR ---
ENDORSED PT TO ADJUNCT INSTRUCTOR NURSE AT BEDSIDE FOR CONTINUITY OF CARE. PT IS RESTING COMFORTABLY IN BED IN STABLE CONDITION.
--- NOTE | 2017-04-18 19:26 | NUR ---
RECD. RESTING IN BED, AWAKE, A/OX4. RESPIRATION EVEN AND UNLABORED. IV OF D5NS AT 80 ML/HR INFUSING, RIGHT HAND G22. STATED FEELING BETTER, AMBULATING MORE TODAY, ALREADY PASSING GAS BY BURPING, NO BM YET. ENCOURAGED TO AMBULATE MORE AND DRINK MORE FLUIDS, DO DEEP BREATHING. INCISION IN THE ABDOMEN COVERED WITH DRESSING DRY AND INTACT WITH 1 RADHA DRAINING SEROSANGUINEOUS FLUID, MODERATE AMOUNT. PLAN OF CARE FOR THE SHIFT DISCUSSED. VERBALIZED UNDERSTANDING. PAIN IN THE ABDOMEN 08/01, WILL MEDICATE ORDERED. VS STABLE.
[2017-04-18 21:21] VITALS: BP 123/77
--- NOTE | 2017-04-18 22:00 | NUR ---
Patient's Plan of Care was discussed and reviewed with OUTPATIENT CODER: MAKENZIE RODAS
[2017-04-18] MEDS: ONDANSETRON 4 MG/2 ML VIAL IM/IVP PRN (23:15)
--- NOTE | 2017-04-18 23:15 | NUR ---
NAUSEATED, MEDICATED WITH ZOFRAN 4 MG. IVP BY QUEENIE SORIA.
[2017-04-18] MEDS: HYDROcodone/APAP 7.5/325 MG 1 TAB PO PRN (23:52)
[2017-04-19] VITALS (7 sets, daily range): BP systolic 101–126; BP diastolic 59–83
[2017-04-19] MEDS ORDERED: PANTOPRAZOLE 40 MG INJ VIAL IVP SCH ×2 (00:25→22:20)
--- NOTE | 2017-04-19 00:25 | NUR ---
PATIENT COMPLAINT OF HEARTBURN, INFORMED DR. HEBERT. WILL ORDER PROTONIX.
--- NOTE | 2017-04-19 02:00 | NUR ---
ASSISTED OUT OF BED TO GO TO BR TO VOID. BACK TO BED AFTER VOIDING.
--- NOTE | 2017-04-19 02:09 | NUR ---
MEDICATED WITH PROTONIX 40 MG. IVP BY QUEENIE SORIA.
[2017-04-19] MEDS ORDERED: METOCLOPRAMIDE 10 MG/2 ML INJ VIAL IVP SCH (02:10)
--- NOTE | 2017-04-19 02:30 | NUR ---
INFORMED DR. HEBERT PATIENT VOMITED AGAIN, BROWNISH FLUID WITH SOME SOLIDS, 150 ML.
--- NOTE | 2017-04-19 02:50 | NUR ---
COMPLAINT OF DIZZINESS, VS CHECKED- BP - 109/66, HR - 124, RR- 20, 02 SAT -96%, TEMP - 98.8.
--- NOTE | 2017-04-19 02:52 | NUR ---
MEDICATED WITH REGLAN 10MG. IVP BY QUEENIE SORIA.
--- NOTE | 2017-04-19 03:15 | NUR ---
PATIENT WAS ABLE TO SLEEP.
--- NOTE | 2017-04-19 03:22 | NUR ---
NO N/V NOTED, STILL SLEEPING COMFORTABLY.
[2017-04-19] MEDS: DEXT 5% /NACL 0.9% 1,000 ML IV SCH ×3 (04:39→21:20)
--- NOTE | 2017-04-19 04:45 | NUR ---
AWAKE, COMPLAINING OF NOT FEELING WELL, FEELING WARM, BLOATED. INFORMED DR. HEBERT, VS CHECKED - 98.3, 114, 20, 102/67, 02 SAT - 94%. RADHA OUTPUT - 200 ML, SANGUINOUS FLUID.
[2017-04-19] MEDS: SIMETHICONE 80 MG TAB.CHEW PO PRN ×2 (05:01→05:04)
--- NOTE | 2017-04-19 05:05 | NUR ---
MEDICATED WITH MYLICON FOR GAS ORDERED.
--- NOTE | 2017-04-19 05:15 | NUR ---
ASSISTED WITH BEDPAN, VOIDED 150 ML BROWN YELLOWISH URINE.
[2017-04-19] MEDS: ONDANSETRON 4 MG/2 ML VIAL IM/IVP PRN (05:37)
--- NOTE | 2017-04-19 05:37 | NUR ---
VOMITED SMALL AMOUNT OF SOLIDS WITH BROWNISH LIQUID. MEDICATED WITH ZOFRAN 40 MG. IVP BY QUEENIE SORIA.
[2017-04-19 05:42] LABS: BASOPHILS # (AUTO) 0.1 K/uL (0.00-0.22); BASOPHILS % (AUTO) 3.6 % (0.0-2.0); EOSINOPHILS # (AUTO) 0.1 K/uL (0-0.4); EOSINOPHILS % (AUTO) 1.3 % (0.0-4.0); HEMATOCRIT 35.4 % (36-48); HEMOGLOBIN 11.7 g/dL (12.0-16.0); LYMPHOCYTES # (AUTO) 0.9 K/uL (2.5-16.5); LYMPHOCYTES % (AUTO) 22.6 % (20.5-51.1); MEAN CORPUSCULAR HEMOGLOBIN 29 pg (27-31); MEAN CORPUSCULAR HGB CONC 33 g/dL (33-37); MEAN CORPUSCULAR VOLUME 88 fL (80-94); MONOCYTES # (AUTO) 0.5 K/uL (0.8-1.0); MONOCYTES % (AUTO) 13.5 % (1.7-9.3); NEUTROPHILS # (AUTO) 2.3 K/uL (1.8-7.7); PLATELET COUNT (AUTO) 227 K/uL (140-450); RED BLOOD CELL COUNT(AUTO) 4.02 MIL/uL (4.20-5.40); RED CELL DISTRIBUTION WIDTH 12.8 % (11.6-13.7); WHITE BLOOD COUNT (AUTO) 3.9 K/uL (4.8-10.8)
--- NOTE | 2017-04-19 06:00 | NUR ---
DR. HEBERT ORDERED KUB FOR THIS AM. WILL ENDORSE TO AM NURSE TO FOLLOW UP RESULT.
--- NOTE | 2017-04-19 06:07 | NUR ---
NO N/V NOTED, EMPTY TOTAL OUTPUT FROM RADHA - 260 ML OF DARK REDDISH YELLOWISH FLUID.
--- NOTE | 2017-04-19 06:20 | NUR ---
PAGED FOR DR. STEVEN TO INFORM REGARDING PATIENT CONDITION. SENIOR WEB APPLICATIONS DEVELOPER DR. KENDRIKC DID NOT CALL BACK, WILL ENDORSE TO AM NURSE.
[2017-04-19 07:07] LABS: ALBUMIN 2.3 g/dL (3.4-5.0); ANION GAP 11.8 (8-16); CARBON DIOXIDE 25.6 mmol/L (21-32); CREATININE 0.7 mg/dL (0.6-1.3); POTASSIUM 3.4 mmol/L (3.5-5.1); TOTAL BILIRUBIN 1.5 mg/dL (0.0-1.0)
--- NOTE | 2017-04-19 07:15 | NUR ---
CONDITION REMAIN STABLE. ENDORSED TO ABRIL MCGEE FOR CONTINUITY OF CARE. NPO EXCEPT MEDS TODAY.
--- NOTE | 2017-04-19 08:00 | NUR ---
Patient's Plan of Care was discussed and reviewed with SYSTEMS MGR: EVERARDO Ryan
[2017-04-19] MEDS: HYDROmorphone 1 MG/ML AMP IVP PRN ×2 (08:35→17:30)
[2017-04-19] MEDS: PANTOPRAZOLE 40 MG INJ VIAL IVP SCH (08:45)
[2017-04-19] MEDS: LACTOBACILLUS RHAMNOSUS GG 1 EACH CAP PO SCH (09:08)
[2017-04-19] MEDS ORDERED: METOCLOPRAMIDE 10 MG/2 ML INJ VIAL IVP PRN ×2 (10:25→14:05)
--- NOTE | 2017-04-19 11:20 | NUR ---
YOSSI PEDRO AND DR. LEVINE WENT INSIDE PT. ROOM AND SPOKE TO PT. WITH ASSISTANCE FROM KRISTINA LOVE -QUEENIE PER YOSSI PEDRO REQUEST TO INTERPRET FAROESE LANGUAGE. YOSSI PEDRO EXPLAINED TO PT. ABOUT ERCP PROCEDURE TO BE DONE TODAY. PT. VERBALIZED UNDERSTANDING. INFORMED CHARGE NURSE PABLO SALDAÑA.
--- NOTE | 2017-04-19 11:30 | NUR ---
DR. STEVEN CAME AND SEEN PT.. INFORMED DR. STEVEN THAT RADHA DRAIN SITE WAS LEAKING, RADHA DRAIN OUTPUT TOTAL 140 ML OF YELLOW-GREEN FLUID SINCE THIS MORNING, AND DR. SWAN PLAN OF ERCP TODAY 04/19/17. DR. STEVEN STATES "I ALREADY TALKED TO DR. SWAN, AND THAT RADHA SITE IS OK. INFORMED CHARGE NURSE PABLO SALDAÑA.
--- NOTE | 2017-04-19 11:36 | NUR ---
CALLED PT. DAUGHTER -DEMETRI AT AND INFORMED THAT G.I. DOCTOR YOSSI PEDRO TOGETHER WITH DR. LEVINE WENT INSIDE PT. ROOM AND SPOKE TO PT. WITH ASSISTANCE FROM KRISTINA LOVE -QUEENIE, EXPLAINED PROCEDURE OF ERCP TO BE DONE TODAY 04/19/17/. ALSO INFORMED PT. ALEX TRIPP THAT OR NURSE WILL ABOUT TO SUPERINTENDENT OVERHEAD DISTRIBUTION PT. SOON. INFORMED CHARGE NURSE.
[2017-04-19] MEDS ORDERED: GLUCAGON 1 MG VIAL ONE ×2 (12:00→13:48)
[2017-04-19] MEDS ORDERED: ONDANSETRON 4 MG/2 ML VIAL ONE ×2 (12:00→14:44)
[2017-04-19] MEDS ORDERED: METOCLOPRAMIDE 10 MG/2 ML INJ VIAL ONE ×2 (12:00→12:49)
[2017-04-19] MEDS ORDERED: PROPOFOL 200 MG/20 ML VIAL IV ONE (12:00)
[2017-04-19] MEDS ORDERED: MEPERIDINE 50 MG/ML SYR ONE (12:20)
[2017-04-19] MEDS ORDERED: fentaNYL 0.05 MG/ML VIAL ONE (12:20)
[2017-04-19] MEDS ORDERED: MIDAZOLAM 2 MG/2 ML VIAL ONE (12:20)
--- NOTE | 2017-04-19 12:41 | NUR ---
04/19/17 RD FOLLOW-UP ASSESSMENT COMPLETED PLEASE REFER TO NUTRITION ASSESSMENT UNDER CARE ACTIVITY FOR ESTIMATED NUTRITIONAL NEEDS. 1. WHEN MEDICALLY FEASIBLE, RESUME PO DIET - TO START ON CLEAR LIQUID DIET, ADVANCE TOLERATED TO REGULAR DIET 2. RD TO FOLLOW-UP 2-3 DAYS, HIGH RISK NESS MCDANIEL RD
[2017-04-19] MEDS ORDERED: MEPERIDINE 25 MG/ML SYR IVP PRN ×2 (14:05)
[2017-04-19] MEDS ORDERED: MIDAZOLAM 2 MG/2 ML VIAL IVP ONE (14:05)
--- NOTE | 2017-04-19 15:10 | NUR ---
CAME BACK FROM OR VIA GURNEY. NO SIGNS AND SYMPTOMS OF ACUTE DISTRESS NOTED. KEEP COMFORTABLE ON BED. PT. DAUGHTER ON BEDSIDE. EXPLAINED POST-OP CARE, PAIN MANAGEMENT TEACHING. VERBALIZED UNDERSTANDING. CALL LIGHT WITHIN REACH.
--- NOTE | 2017-04-19 15:15 | NUR ---
DR. LEVINE WENT INSIDE PT. ROOM AND SPOKE TO PT. AND PT. DAUGHTER -DEMETRI.
[2017-04-19] MEDS: METOCLOPRAMIDE 10 MG/2 ML INJ VIAL IVP SCH (16:31)
[2017-04-19] MEDS ORDERED: POTASSIUM CHLORIDE 40 MEQ, LIDOCAINE 1% 25 MG in NACL 0.9% 250 ML IV SCH (17:30)
--- NOTE | 2017-04-19 17:45 | NUR ---
DR. LEVINE WENT INSIDE PT. ROOM AND SPOKE TO PT. DAUGHTER -DEMETRI. PT. RESTING ON BED COMFORTABLY.
--- NOTE | 2017-04-19 19:05 | NUR ---
BEDSIDE REPORT GIVEN TO KRISTINE SALDAÑA. IVF INFUSING WELL. IN STABLE CONDITION.
--- NOTE | 2017-04-19 19:10 | NUR ---
RECEIVED REPORT FROM DAY RN. PATIENT RESTING IN BED, AWAKE ALERT ORIENTED X4. PATIENT'S DAUGHTER AT BEDSIDE. NO S/S OF ACUTE DISTRESS NOTED, RESPIRATION EVEN AND UNLABORED. IV PATENT AND INTACT, INFUSING D5NS 80ML/HR. RADHA DRAIN IN PLACE, 3ML DARK BROWN DRAINAGE EMPTIED OUT FROM THE RADHA DRAIN. CALL LIGHT WITHIN REACH, SAFETY MEASURE ENSURED, WILL CONTINUE TO MONITOR.
[2017-04-19] MEDS ORDERED: MAGNESIUM CITRATE 300 ML BTL PO SCH (20:00)
[2017-04-19] MEDS: PIPER/TAZO 3.375GM/D5W PREMIX 50 ML IV SCH (20:20)
[2017-04-19] MEDS: SENNA 8.6 MG TAB PO SCH (20:20)
--- NOTE | 2017-04-19 22:35 | NUR ---
PATIENT START HER PERIOD.
--- NOTE | 2017-04-19 23:20 | NUR ---
PATIENT STATED," I FEEL A LOT OF ACID AND HEARTBURN TOO." MADE DR. HEBERT AWARE. RECEIVED AN ORDER OF PROTONIX 40MG IVP. ORDER CARRIED OUT. WILL CONTINUE TO MONITOR.
[2017-04-20] VITALS: BP 135/76
--- NOTE | 2017-04-20 01:15 | NUR ---
CHANGED DRESSING, PATIENT TOLERATED WELL. NOTED PATIENT FLATULATED X1.
[2017-04-20 04:00] VITALS: BP 119/79
[2017-04-20] MEDS: ONDANSETRON 4 MG/2 ML VIAL IM/IVP PRN (04:14)
[2017-04-20] MEDS: PIPER/TAZO 3.375GM/D5W PREMIX 50 ML IV SCH ×3 (04:14→20:01)
--- NOTE | 2017-04-20 04:19 | NUR ---
PATIENT STATED, " I FEEL NAUSEOUS." ZOFRAN GIVEN ORDERED. ZOSYN STARTED. WILL CONTINUE TO MONITOR.
--- NOTE | 2017-04-20 06:29 | NUR ---
PATIENT REQUESTED TO BE ASSISTED TO THE BATHROOM. PATIENT WALKED TO THE BATHROOM, VOIDED X1. PATIENT RESTING IN BED NOW, NO S/S OF ACUTE DISTRESS NOTED, RESPIRATION EVEN AND UNLABORED, WILL CONTINUE TO MONITOR.
[2017-04-20 06:44] LABS: BASOPHILS # (AUTO) 0.1 K/uL (0.00-0.22); BASOPHILS % (AUTO) 1.8 % (0.0-2.0); EOSINOPHILS % (AUTO) 0.4 % (0.0-4.0); HEMATOCRIT 34.4 % (36-48); HEMOGLOBIN 11.5 g/dL (12.0-16.0); LYMPHOCYTES # (AUTO) 0.5 K/uL (2.5-16.5); LYMPHOCYTES % (AUTO) 8.6 % (20.5-51.1); MEAN CORPUSCULAR HEMOGLOBIN 30 pg (27-31); MEAN CORPUSCULAR HGB CONC 34 g/dL (33-37); MEAN CORPUSCULAR VOLUME 88 fL (80-94); MONOCYTES # (AUTO) 0.6 K/uL (0.8-1.0); MONOCYTES % (AUTO) 10.1 % (1.7-9.3); NEUTROPHILS # (AUTO) 4.5 K/uL (1.8-7.7); NEUTROPHILS % (AUTO) 79.1 % (42.2-75.2); PLATELET COUNT (AUTO) 258 K/uL (140-450); RED BLOOD CELL COUNT(AUTO) 3.92 MIL/uL (4.20-5.40); RED CELL DISTRIBUTION WIDTH 12.6 % (11.6-13.7); WHITE BLOOD COUNT (AUTO) 5.7 K/uL (4.8-10.8)
[2017-04-20 07:06] LABS: ALBUMIN 2.2 g/dL (3.4-5.0); ANION GAP 11.6 (8-16); CARBON DIOXIDE 26.6 mmol/L (21-32); CREATININE 0.9 mg/dL (0.6-1.3); POTASSIUM 3.2 mmol/L (3.5-5.1); TOTAL BILIRUBIN 1.4 mg/dL (0.0-1.0)
--- NOTE | 2017-04-20 07:29 | NUR ---
ENDORSED PLAN OF CARE TO DAY RN. PATIENT RESTING IN BED, IN STABLE CONDITION. NO S/S OF ACUTE DISTRESS NOTED.
--- NOTE | 2017-04-20 07:30 | NUR ---
RECEIVED REPORT FROM JAVA PERFORMANCE ENGINEER NURSE, PT IS RESTING IN BED, A/OX4, AMBULATORY, IV IS ON THE LEFT HAND, PATENT, INTACT, FLUSHING WELL, PT HAS ABDOMINAL BINDER ON, PT HAS INCISION ON HER LOWER ABDOMEN WITH KIKO, NO DRAINAGE, REDNESS OR ODOR NOTED, PT HAS ABDOMINAL DRESSING, DRY AND INTACT, PT IS ON O2 2L NC, NO S/S OF RESPIRATORY DISTRESS OR DISCOMFORT NOTED, DISCUSSED PLAN OF CARE WITH PT, PT VERBALIZED UNDERSTANDING, SAFETY/FALL PRECAUTIONS ARE IN PLACE, CALL LIGHT WITHIN REACH, WILL CONTINUE TO MONITOR.
[2017-04-20 08:00] VITALS: BP 134/80
[2017-04-20] MEDS: LACTOBACILLUS RHAMNOSUS GG 1 EACH CAP PO SCH (09:03)
[2017-04-20] MEDS: SENNA 8.6 MG TAB PO SCH ×3 (09:03→17:00)
[2017-04-20] MEDS: PANTOPRAZOLE 40 MG INJ VIAL IVP SCH (09:03)
[2017-04-20] MEDS: KETOROLAC 30 MG/ML VIAL IVP PRN ×2 (09:04→20:01)
[2017-04-20] MEDS: METOCLOPRAMIDE 10 MG/2 ML INJ VIAL IVP SCH ×3 (09:04→17:47)
--- NOTE | 2017-04-20 10:15 | NUR ---
PT IS AMBULATING DOWN THE CRUZ ACCOMPANIED BY HER DAUGHTER.
[2017-04-20] MEDS ORDERED: CEPH500C16 PO (10:37)
[2017-04-20] MEDS ORDERED: LACT1CAP65 PO (10:38)
[2017-04-20] MEDS: DEXT 5% /NACL 0.9% 1,000 ML IV SCH ×2 (10:39→21:58)
[2017-04-20 12:00] VITALS: BP 124/67
--- NOTE | 2017-04-20 13:00 | NUR ---
PT IS SITTING ON CHAIR AT THE BEDSIDE, PATIENT'S DAUGHTER IS ALSO AT BEDSIDE.
--- NOTE | 2017-04-20 13:30 | NUR ---
PT DRESSING CHECKED, DRESSING IS DRY AND INTACT AT THIS TIME.
[2017-04-20] MEDS ORDERED: POTASSIUM CHLORIDE 40 MEQ, LIDOCAINE 1% 25 MG in NACL 0.9% 250 ML IV SCH (15:30)
--- NOTE | 2017-04-20 15:45 | NUR ---
PT IS SLEEPING IN BED AT THIS TIME, CALL LIGHT WITHIN REACH.
[2017-04-20 16:00] VITALS: BP 134/67
--- NOTE | 2017-04-20 17:15 | NUR ---
PT REFUSED THE [place], PT STATED SHE HAD ALREADY HAD 3 BOWEL MOVEMENTS TODAY AND FOR THE LAST BOWEL MOVEMENT SHE COULD NOT MAKE IT TO THE RESTROOM.
--- NOTE | 2017-04-20 18:00 | NUR ---
TOTAL OUTPUT OF RADHA DRAINAGE 20 ML, PT IS RESTING IN BED, NO S/S OF RESPIRATORY DISTRESS OR DISCOMFORT NOTED.
--- NOTE | 2017-04-20 19:23 | NUR ---
ENDORSED PT TO SKEIN DYER NURSE FOR CONTINUITY OF CARE, PT STABLE AT THIS TIME
--- NOTE | 2017-04-20 19:30 | NUR ---
RECEIVED REPORT FROM DAY RN, PATIENT RESTING IN BED, AWAKE, ALERT, ORIENTED X4, NO S/S OF ACUTE DISTRESS NOTED, RESPIRATION EVEN AND UNLABORED. IV INTACT AND PATENT, INFUSING NS AT 80ML/HR. PLAN OF CARE DISCUSSED, VERBALIZED UNDERSTANDING, CALL LIGHT WITHIN REACH, SAFETY MEASURE ENSURED, WILL CONTINUE TO MONITOR. Addendum: 04/20/17 at 1948 by Gorge Marti RN INFUSING D5NS AT 80ML/HR
[2017-04-20 20:00] VITALS: BP 118/56
--- NOTE | 2017-04-20 20:10 | NUR ---
PM MEDICATION GIVEN, PATIENT TOLERATED WELL. PATIENT STATED, " I HAVE ABDOMINAL PAIN." PAIN MEDICATION GIVEN ORDERED, SAFETY MEASURE ENSURED, CALL LIGHT WITHIN REACH, WILL CONTINUE TO MONITOR.
--- NOTE | 2017-04-20 22:20 | NUR ---
PATIENT SLEEPING IN BED, NO S/S OF ACUTE DISTRESS NOTED, RESPIRATION EVEN AND UNLABORED, CALL LIGHT WITHIN REACH, SAFETY MEASURE ENSURED, WILL CONTINUE TO MONITOR.
[2017-04-21] VITALS: BP 111/60
--- NOTE | 2017-04-21 01:15 | NUR ---
DRESSING CHANGED, PATIENT TOLERATED WELL.
--- NOTE | 2017-04-21 03:20 | NUR ---
PATIENT IS SLEEPING AT THIS TIME NO S/S OF ACUTE DISTRESS NOTED, RESPIRATION EVEN AND UNLABORED, CALL LIGHT WITHIN REACH, SAFETY MEASURE ENSURED, WILL CONTINUE TO MONITOR.
[2017-04-21 04:00] VITALS: BP 112/67
[2017-04-21] MEDS: PIPER/TAZO 3.375GM/D5W PREMIX 50 ML IV SCH ×3 (04:05→20:49)
--- NOTE | 2017-04-21 05:50 | NUR ---
ASSISTED PATIENT WALK TO THE BATHROOM, VOIDED X1, SHORT OF BREATH NOTED WHEN WALKING TOWARDS THE BED. PATIENT RESTING IN BED, ON O2 NC 2L, NO S/S OF ACUTE DISTRESS NOTED, RESPIRATION EVEN AND UNLABORED. CALL LIGHT WITHIN REACH, SAFETY MEASURE ENSURED, WILL CONTINUE TO MONITOR.
--- NOTE | 2017-04-21 07:10 | NUR ---
RECEIVED PLAN OF CARE FROM NIGHT NURSE, PT IS AAOX4 SAMI SPEAKING, IV TO RIGHT HAND 22G INFUSING WELL , ABD INCISION WITH DRESSING DRY AND INTACT, WITH RADHA DRAIN, PT CURRENTLY AT OM ROOM AIR 93 %, INITIAL ASSESSMENT COMPLETED, REVIEWED PLAN OF CARE WITH PT, PT VERBALIZED UNDERSTANDING, ALL SAFETY PRECAUTIONS MET, CALL LIGHT WITHIN REACH. WILL CONTINUE TO MONITOR.
--- NOTE | 2017-04-21 07:10 | NUR ---
ENDORSED PLAN OF CARE TO DAY RN. PATIENT IN STABLE CONDITION. NO S/S OF ACUTE DISTRESS.
[2017-04-21 07:11] LABS: BASOPHILS # (AUTO) 0.1 K/uL (0.00-0.22); EOSINOPHILS # (AUTO) 0.8 K/uL (0-0.4); EOSINOPHILS % (AUTO) 11.1 % (0.0-4.0); HEMATOCRIT 30.5 % (36-48); HEMOGLOBIN 9.8 g/dL (12.0-16.0); LYMPHOCYTES # (AUTO) 1.1 K/uL (2.5-16.5); LYMPHOCYTES % (AUTO) 15.6 % (20.5-51.1); MEAN CORPUSCULAR HEMOGLOBIN 29 pg (27-31); MEAN CORPUSCULAR HGB CONC 32 g/dL (33-37); MEAN CORPUSCULAR VOLUME 89 fL (80-94); MONOCYTES # (AUTO) 0.6 K/uL (0.8-1.0); MONOCYTES % (AUTO) 8.8 % (1.7-9.3); NEUTROPHILS # (AUTO) 4.5 K/uL (1.8-7.7); NEUTROPHILS % (AUTO) 62.5 % (42.2-75.2); PLATELET COUNT (AUTO) 249 K/uL (140-450); RED BLOOD CELL COUNT(AUTO) 3.43 MIL/uL (4.20-5.40); WHITE BLOOD COUNT (AUTO) 7.1 K/uL (4.8-10.8)
[2017-04-21 07:31] LABS: ALBUMIN 1.9 g/dL (3.4-5.0); ANION GAP 8.6 (8-16); CREATININE 0.7 mg/dL (0.6-1.3); POTASSIUM 3.6 mmol/L (3.5-5.1); TOTAL BILIRUBIN 0.8 mg/dL (0.0-1.0)
[2017-04-21 07:57] VITALS: BP 112/65
[2017-04-21] MEDS: PANTOPRAZOLE 40 MG INJ VIAL IVP SCH (08:49)
[2017-04-21] MEDS: LACTOBACILLUS RHAMNOSUS GG 1 EACH CAP PO SCH (08:50)
[2017-04-21] MEDS: METOCLOPRAMIDE 10 MG/2 ML INJ VIAL IVP SCH ×3 (08:50→16:44)
[2017-04-21] MEDS: SENNA 8.6 MG TAB PO SCH ×3 (09:00→16:50)
--- NOTE | 2017-04-21 09:04 | NUR ---
DUE MEDICATION GIVEN, PT TOLERATED WELL. PT CURRENTLY RESTING ON BED, DAUGHTER AT BEDSIDE, ALL NEEDS MET. WILL CONTINUE TO MONITOR.
--- NOTE | 2017-04-21 09:25 | NUR ---
PT WALKING AROUND UNIT WITH DAUGHTER. TOLERATED WELL.
--- NOTE | 2017-04-21 10:00 | NUR ---
PT CURRENTLY WALKING WITH AROUND UNIT, NO SIGN AND SYMPTOM OF DISTRESS, WILL CONTINUE TO MONITOR
[2017-04-21 12:00] VITALS: BP 116/62
[2017-04-21] MEDS: DEXT 5% /NACL 0.9% 1,000 ML IV SCH ×2 (12:06→23:20)
--- NOTE | 2017-04-21 12:07 | NUR ---
DUE MEDICATION GIVEN, PT RESTING ON BED, NO DISTRESS NOTED, CALL LIGHT WITHIN REACH. WILL CONTINUE TO MONITOR.
--- NOTE | 2017-04-21 13:25 | NUR ---
04/21/17 RD FOLLOW UP COMPLETED. PLEASE REFER TO NUTRITION PROGRESS NOTES UNDER CARE ACTIVITY FOR ESTIMATED NUTRITIONAL NEEDS. RD RECOMMENDATIONS: 1. RECOMMEND CONTINUE REGULAR DIET. 2. ENCOURAGE INCREASED PO INTAKE. CONSIDER SUPPLEMENTING DIET WITH [facility] ON NEXT F/U IF PO INTAKE CONTINUES TO BE HIGHLY VARIED AND NOT MEETING NEEDS. 3. RD TO FOLLOW-UP 2-3 DAYS, HIGH RISK BISI VICK MBA, RD
[2017-04-21] MEDS: HYDROcodone/APAP 7.5/325 MG 1 TAB PO PRN (14:46)
--- NOTE | 2017-04-21 14:57 | NUR ---
RADHA DRAIN REMOVED PER MD ORDER, PRE-MEDICATED PT WITH NORCO. PT TOLERATED WELL, LEFT RESTING CALL LIGHT WITHIN REACH. Addendum: 04/21/17 at 1515 by Deborah Santos RN RADHA SITE COVERED WITH DRESSING.
[2017-04-21 16:00] VITALS: BP 110/63
--- NOTE | 2017-04-21 16:46 | NUR ---
DUE MEDICATION GIVEN, PT RESTING, WATCHING TV, NO DISTRESS NOTED, CALL LIGHT WITHIN REACH, WILL CONTINUE TO MONITOR.
--- NOTE | 2017-04-21 18:43 | NUR ---
PT AMBULATING AROUND THE NURSING STATION WITH DAUGHTER, TOLERATED WELL. WILL CONTINUE TO MONITOR.
--- NOTE | 2017-04-21 19:19 | NUR ---
ENDORSE PLAN OF CARE TO NIGHT NURSE, PT STABLE RESTING ON CHAIR DAUGHTER AT BEDSIDE.
[2017-04-21 20:00] VITALS: BP 120/65
--- NOTE | 2017-04-21 22:55 | NUR ---
PT IS SLEEPING. SHOWING NO SIGNS OF ACUTE DISTRESS, BED ON LOW POSITION, BILATERAL HALF SIDE RAILS UP, CALL LIGHT WITHIN REACH, WILL CONTINUE TO MONITOR.
--- NOTE | 2017-04-21 23:14 | NUR ---
RECEIVED REPORT FROM AM NURSE, PT AWAKE AND ALERT, AND ORIENTED X4. DAUGHTER AT THE BEDSIDE. NO SIGNS OF ACUTE DISTRESS, ON ROOM AIR, IV ACCESS PATENT AND ASYMPTOMATIC. BOWEL AND BLADDER CONTINENCE. NO PAIN AT THIS TIME. AMBULATORY WITHOUT ASSIST. PLAN OF CARE DISCUSSED, PT VERBALIZED UNDERSTANDING. BED ON LOW POSITION, BILATERAL HALF SIDE RAILS UP, CALL LIGHT WITHIN REACH, WILL CONTINUE TO MONITOR.
[2017-04-22] VITALS: BP 109/62
[2017-04-22] MEDS: HYDROcodone/APAP 7.5/325 MG 1 TAB PO PRN (00:15)
--- NOTE | 2017-04-22 00:22 | NUR ---
ADMINISTERED NORCO FOR ABDOMINAL PAIN. PT TOLERATED WELL. WILL CONTINUE TO MONITOR.
--- NOTE | 2017-04-22 01:40 | NUR ---
PT IS AWAKE IN BED, SHOWING NO SIGNS OF ACUTE DISTRESS, BED ON LOW POSITION, BILATERAL HALF SIDE RAILS UP, WILL CONTINUE TO MONITOR.
[2017-04-22 04:00] VITALS: BP 105/61
[2017-04-22] MEDS: PIPER/TAZO 3.375GM/D5W PREMIX 50 ML IV SCH ×2 (05:01→12:52)
--- NOTE | 2017-04-22 07:15 | NUR ---
RECEIVED PLAN OF CARE FROM NIGHT NURSE, PT IS AAOX4 KAZAKH SPEAKING, IV TO RIGHT HAND 22G INFUSING WELL , ABD INCISION WITH DRESSING DRY AND INTACT, PT CURRENTLY AT OM ROOM AIR 93 %, INITIAL ASSESSMENT COMPLETED, REVIEWED PLAN OF CARE WITH PT, PT VERBALIZED UNDERSTANDING, ALL SAFETY PRECAUTIONS MET, CALL LIGHT WITHIN REACH. WILL CONTINUE TO MONITOR.
--- NOTE | 2017-04-22 07:15 | NUR ---
ENDORSED PT TO AM NURSE FOR CONTINUITY OF CARE. PT IS STABLE.
[2017-04-22 08:00] VITALS: BP 119/66
[2017-04-22] MEDS ORDERED: LEVO750T2 PO ×2 (08:04→13:35)
[2017-04-22] MEDS ORDERED: METR250T2 PO ×2 (08:07→13:35)
[2017-04-22] MEDS: SENNA 8.6 MG TAB PO SCH ×2 (09:00→12:51)
[2017-04-22] MEDS: METOCLOPRAMIDE 10 MG/2 ML INJ VIAL IVP SCH ×2 (09:03→12:53)
[2017-04-22] MEDS: PANTOPRAZOLE 40 MG INJ VIAL IVP SCH (09:03)
[2017-04-22] MEDS: LACTOBACILLUS RHAMNOSUS GG 1 EACH CAP PO SCH (09:03)
--- NOTE | 2017-04-22 09:14 | NUR ---
DUE MEDICATIONS GIVEN, PT TOLERATED WELL, PT ATE 50% OF REGULAR FOOD, PT STATES THAT SHE HAD A LITTLE NAUSEA, BUT WAS ABLE TO TOLERATE FOOD. CURRENTLY SITTING IN CHAIR, BY SIDE. WILL CONTINUE TO MONITOR.
--- NOTE | 2017-04-22 10:58 | NUR ---
DISCUSSED DISCHARGE PLAN WITH PT, PT STATED UNDERSTANDING, RESTING CALL LIGHT WITHIN REACH, WILL CONTINUE TO MONITOR.
[2017-04-22] MEDS: DEXT 5% /NACL 0.9% 1,000 ML IV SCH (11:50)
[2017-04-22 11:55] VITALS: BP 116/70
--- NOTE | 2017-04-22 12:59 | NUR ---
DUE MEDICATION GIVEN, PT TOLERATED WELL, PT SITTING ON SIDE OF BED, NO DISTRESS NOTED, CALL LIGHT WITHIN REACH, WILL CONTINUE TO MONITOR.
[2017-04-22 16:00] VITALS: BP 116/73
--- NOTE | 2017-04-22 16:13 | NUR ---
DISCHARGE INSTRUCTION GIVEN, MEDICATION INSTRUCTION AND PRESCRIPTION GIVEN, SURGICAL SITE CARE INSTRUCTION GIVEN, DRESSING CHANGED, PT SIGNED ALL DISCHARGE PAPERWORK, IV REMOVED, TIP INTACT, ID BAND REMOVED, ALL PERSONAL BELONGING WITH PT, FAMILY AT BEDSIDE Addendum: 04/22/17 at 1618 by Deborah Santos RN ABD PICTURE TAKEN
--- NOTE | 2017-04-22 16:29 | NUR ---
PT WHEELED TO LOBBY, PT STABLE CONDITION, ACCOMPANIED BY FAMILY.
== END 2017-04-22 16:30 | disposition home or self-care (01) | DRG 261 ==
LOC: MED 03:39 → MTU 07:22
PROVIDERS: ADMIT Family Medicine; ATTEND Family Medicine
PROC: 0FQ90ZZ Repair Common Bile Duct, Open Approach (ICD-10-PCS; 2017-04-16)
PROC: 0FC94ZZ Extirpation of Matter from Common Bile Duct, Percutaneous Endoscopic Approach (ICD-10-PCS; 2017-04-16)
PROC: 0FT40ZZ Resection of Gallbladder, Open Approach (ICD-10-PCS; principal; 2017-04-16 08:00)
PROC: 0FJ44ZZ Inspection of Gallbladder, Percutaneous Endoscopic Approach (ICD-10-PCS; 2017-04-16 08:00)
PROC: 0FC98ZZ Extirpation of Matter from Common Bile Duct, Via Natural or Artificial Opening Endoscopic (ICD-10-PCS; 2017-04-19)
PROC: 0F798DZ Dilation of Common Bile Duct with Intraluminal Device, Via Natural or Artificial Opening Endoscopic (ICD-10-PCS; 2017-04-19)
DX: K80.66 Calculus of gallbladder and bile duct with acute and chronic cholecystitis without obstruction (principal); E43 Unspecified severe protein-calorie malnutrition; Z68.43 Body mass index [BMI] 50.0-59.9, adult; E66.01 Morbid (severe) obesity due to excess calories; E87.6 Hypokalemia; R73.03 Prediabetes; E78.2 Mixed hyperlipidemia; E83.51 Hypocalcemia; R31.9 Hematuria, unspecified; K91.71 Accidental puncture and laceration of a digestive system organ or structure during a digestive system procedure; T40.605A Adverse effect of unspecified narcotics, initial encounter; K59.03 Drug induced constipation; Y92.234 Operating room of hospital as the place of occurrence of the external cause; Y69 Unspecified misadventure during surgical and medical care; Z53.31 Laparoscopic surgical procedure converted to open procedure; Z98.51 Tubal ligation status
CPT/HCPCS: 36415; 71010; 74000; 76700; 76705; 78445; 80048; 80053; 80076; 80305; 81001; 81025; 82150; 82374; 83036; 83690; 83735; 83880; 84100; 84436; 84439; 84443; 84479; 84484; 85025; 85610; 85730; 87081; 88304; 93005; 96361; 96375; 96376; 99285; A9510; C1727; C1769; C9113; J1100; J1170; J1610; J1644; J1885; J2001; J2175; J2250; J2270; J2405; J2543; J2704; J2710; J2765; J3010; J3480; J3490; J7030; J7042; Q0092; Q9967

== ENCOUNTER 2020-05-31 10:04 | Emergency (ER) | payer MEDICAID ==
[~2020-05-31] VITALS: Ht 155.7 cm; Wt 131.3 kg
[~2020-05-31 10:04] MED LIST: LEVO750T2 PO; METR-520 PO
[2020-05-31 10:09] VITALS: BP 92/64
--- NOTE | 2020-05-31 10:18 | NUR ---
Patient ambulated to bed 4. RN evaluating patient at bedside.
[2020-05-31] MEDS ORDERED: ONDANSETRON 4 MG/2 ML VIAL IVP ONE (10:20)
[2020-05-31] MEDS ORDERED: KETOROLAC 30 MG/ML VIAL IVP ONE (10:20)
[2020-05-31] MEDS ORDERED: NACL 0.9% 1,000 ML IV ONE (10:20)
--- NOTE | 2020-05-31 10:30 | NUR ---
LABS DRAWN BEDSIDE AND HANDED TO BIOLOGY RESEARCH ASSISTANT
[2020-05-31 10:33] LABS: BASOPHILS % (AUTO) 0.5 % (0.0-2.0); EOSINOPHILS % (AUTO) 0.3 % (0.0-4.0); HEMATOCRIT 44.3 % (36-48); LYMPHOCYTES # (AUTO) 1.3 K/uL (2.5-16.5); LYMPHOCYTES % (AUTO) 30.7 % (20.5-51.1); MEAN CORPUSCULAR HEMOGLOBIN 30 pg (27-31); MEAN CORPUSCULAR HGB CONC 34 g/dL (33-37); MEAN CORPUSCULAR VOLUME 87.7 fL (80-94); MONOCYTES # (AUTO) 0.4 K/uL (0.8-1.0); MONOCYTES % (AUTO) 8.5 % (1.7-9.3); NEUTROPHILS # (AUTO) 2.6 K/uL (1.8-7.7); PLATELET COUNT (AUTO) 149 K/uL (140-450); RED BLOOD CELL COUNT(AUTO) 5.06 MIL/uL (4.20-5.40); RED CELL DISTRIBUTION WIDTH 12.4 % (11.6-13.7); WHITE BLOOD COUNT (AUTO) 4.3 K/uL (4.8-10.8)
--- NOTE | 2020-05-31 10:43 | NUR ---
49/F C/O DIZZINESS (ROOM SPINNING SENSATION) UPON CHANGING POSITIONS FROM SUPINE TO STANDING X 5 DAYS ; NAUSEA, EPIGASTRIC PAIN X 2 DAYS. NO VOMITING OR DIARRHEA. LAST THIS MORNING, NORMAL. PT AMBULATORY FROM TRIAGE TO BED 04, STEADY GAIT. PT STATES WAS TX WITH ABX FOR A RIGHT EAR INFECTION SEVERAL DAYS AGO. MED HX: CHOLECYSTECTOMY, C SECTION
[2020-05-31 10:48] LABS: ALBUMIN 3.5 g/dL (3.4-5.0); ANION GAP 10.6 (8-16); CARBON DIOXIDE 26.9 mmol/L (21-32); CREATININE 0.8 mg/dL (0.6-1.3); POTASSIUM 3.5 mmol/L (3.5-5.1); TOTAL BILIRUBIN 0.5 mg/dL (0.0-1.0)
--- NOTE | 2020-05-31 10:59 | NUR ---
DR. RICHMOND EVALUATING PT AT BEDSIDE
[2020-05-31] MEDS ORDERED: MECLIZINE 25 MG TAB PO ONE (11:05)
--- NOTE | 2020-05-31 11:42 | NUR ---
PT STATES DECREASE IN DIZZINESS, JUST FEELS FATIGUED NOW; DR. RICHMOND MADE AWARE
--- NOTE | 2020-05-31 12:00 | NUR ---
Patient discharged with v/s stable. Written and verbal after care instructions given and explained. Patient alert, oriented and verbalized understanding of instructions. Ambulatory with steady gait. All questions addressed prior to discharge. ID band removed. Patient advised to follow up with PMD. Rx of MOTRIN, ZOFRAN, MECLIZINE given. Patient educated on indication of medication including possible reaction and side effects. Opportunity to ask questions provided and answered. PT WILL BE PICKED UP FROM ER BY FAMILY MEMBER
[2020-05-31 12:01] VITALS: BP 112/56
== END 2020-05-31 12:00 | disposition home or self-care (01) ==
LOC: MED 10:04
DX: H81.10 Benign paroxysmal vertigo, unspecified ear (principal); R10.13 Epigastric pain; R11.0 Nausea; Z90.49 Acquired absence of other specified parts of digestive tract; Z98.890 Other specified postprocedural states; Z79.899 Other long term (current) drug therapy
CPT/HCPCS: 36415; 80053; 81002; 81025; 83690; 85025; 96361; 96374; 96375; 99284; J1885; J2405; J7030; J8597

== ENCOUNTER 2024-03-14 09:49 | Emergency (ER) | payer MEDICAID, OTHER ==
[~2024-03-14] VITALS: Ht 157.5 cm; Wt 127.5 kg
[2024-03-14 10:17] VITALS: BP 148/73; PULSE 78; RESP 15; TEMP 98.6; O2SAT 96
[2024-03-14 11:24] LABS: APPEARANCE,URINE CLEAR (CLEAR); BILIRUBIN,URINE NEGATIVE (NEGATIVE); BLOOD, URINE NEGATIVE (NEGATIVE); COLOR,URINE YELLOW (YELLOW); LEUKOCYTE ESTERASE ,URINE TRACE (NEGATIVE); NITRITE, URINE NEGATIVE (NEGATIVE); PH,URINE 6.5 (5.0-9.0); PROTEIN,URINE NEGATIVE (NEGATIVE); UGLUCOSE NEGATIVE (NEGATIVE); UROBILINOGEN,URINE 0.2 EU/dL (0.2 - 1)
[2024-03-14] MEDS ORDERED: ONDANSETRON 4 MG ODT ONE (12:05)
[2024-03-14] MEDS ORDERED: KETOROLAC 30 MG/ML VIAL ONE (12:05)
[2024-03-14] MEDS: ONDANSETRON 4 MG ODT PO ONE (12:08)
[2024-03-14] MEDS: KETOROLAC 30 MG/ML VIAL IM ONE (12:08)
[2024-03-14] MEDS ORDERED: ONDA-188 SL (12:18)
[2024-03-14] MEDS ORDERED: LOPE1TAB14 PO (12:18)
[2024-03-14 12:37] VITALS: BP 145/70; PULSE 75; RESP 18; TEMP 97.3; O2SAT 97
== END 2024-03-14 12:39 | disposition home or self-care (01) ==
LOC: MED 09:49
DX: R19.7 Diarrhea, unspecified (principal); R10.30 Lower abdominal pain, unspecified; R11.0 Nausea; I10 Essential (primary) hypertension; E11.9 Type 2 diabetes mellitus without complications; Z79.899 Other long term (current) drug therapy
CPT/HCPCS: 81003; 81025; 96372; 99283; J1885; Q0162